=== PATIENT | male | born 1940 | race Caucasian/White ===

== ENCOUNTER 2019-08-20 12:40 | Outpatient (CLI) | payer MEDICARE, SELFPAY ==
--- NOTE | 2019-08-20 12:47 | US_ITS ---
WS: [id number] Bilateral renal ultrasound, 08/20/2019 Clinical Data: CHRONIC KIDNEY DZ-STAGE 3 Comparison: None. Findings: The right kidney measures 11.2 cm x 4.1 cm x 5.6 cm and the left kidney is 12.9 cm x 4.3 cm x 5.6 cm. There are no cysts, masses or hydronephrosis. The renal cortical margin is normal. No renal calculi are seen. The abdominal aorta and inferior vena cava show no vascular abnormalities. The bladder was scanned and was not remarkable. US/US renal BI* [id number] Impression: Negative bilateral renal ultrasound.
== END 2019-08-20 12:41 | disposition home or self-care (01) ==
LOC: RAD 12:45
PROVIDERS: Family Provider Family Medicine; Visit Provider Internal Medicine Nephrology
DX: N18.3 Chronic kidney disease, stage 3 (moderate) (principal)
CPT/HCPCS: 76770

== ENCOUNTER 2020-03-05 13:22 | Observation (INO) | payer OTHER, MEDICARE, SELFPAY ==
[2020-03-05] VITALS (9 sets, daily range): BP systolic 79–130; BP diastolic 40–67; PULSE 68–100; RESP 12–20; TEMP 36.5–36.6; O2SAT 96–99
--- NOTE | 2020-03-05 14:05 | XR_ITS ---
WS: [id number] Portable AP upright chest, 03/05/2020 Clinical Data: Weakness Comparison: PA chest, 05/02/2018. Findings: No nodules, masses or effusions are seen. The heart is normal. The pulmonary vascularity is not increased. No pneumonia or pneumothorax is seen. The permanent pacemaker remains in good positio n. The aortic arch and descending aorta show tortuosity. XR/XR chest 1V portable [id number] Impression: Atherosclerosis.
--- NOTE | 2020-03-05 14:06 | ECG_ITS ---
[facility] Test Date: 2020-03-05 Pat Name: Tulio Arndt Department: Room: Gender: Male [employer] Specialist: : [id number] Requested By: Tamara Gallego Order Number: [id number] Mora MD: Ludivina Street M.D. Measurements Intervals [place] Rate: 80 P: -15 NM: 199 QRS: -22 QRSD: 92 T: 35 QT: 337 QTc: 391 Interpretive Statements SINUS RHYTHM LOW QRS VOLTAGE IN PRECORDIAL LEADS INFERIOR MYOCARDIAL INFARCTION , PROBABLY OLD Compared to ECG 02/28/2015 09:31:29 Low QRS voltage now present Myocardial infarct finding now present Ventricular-paced complex(es) or rhythm no longer present T-wave abnormality no longer present Possible ischemia no longer present Electronically Signed On 03-06-2020 20:27:[address] M.D. [email or web address]
--- NOTE | 2020-03-05 14:11 | CT_ITS ---
WS: [id number] CT scan of the abdomen and pelvis with IV contrast. Additional two-dimensional coronal and sagittal r econstruction was performed. 03/05/2020 Clinical Data: Abdominal pain Comparison: CT abdomen and pelvis, 03/30/2011. DLP: 1896.[address] scans at [facility] use at least one of these dose optimization techniques: automat ed exposure control; mA and/or kV adjustment per patient size (includes targeted exams where dose is matched to clinical indication); or iterative reconstruction. Findings: The lower lungs show no nodules, masses or effusions. Pacemaker wires are in the apex of the heart. The liver, spleen, and pancreas are normal. There is an incidental small cyst of the right lobe of th e liver. There are gallstones in the gallbladder but there is no pericholecystic fluid. The right adr enal gland is normal. 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 The kidneys show equal bilateral contrast excretion with no masses. There are small bilateral cysts. No renal calculi or hydronephrosis is seen. The abdominal aorta is normal in size with minimal calcification in the wall. No appendicitis or diverticulitis is seen. The stomach, small bowel and colon show no abnormalities. There is a large amount of fecal material in the descending and sigmoid colon. The bladder is unremar kable. No inguinal hernia is seen. There is degenerative change of the lumbar vertebral bodies with multiple levels of degenerative disc disease from L2-L3 through L5-S1. There is an anterolisthesis of L5 on S1 of 0.[address]/CT abdomen pelvis w con* [id number] Impression: 1. Negative for acute intra-abdominal or pelvic abnormalities. 2. Cholelithiasis.
--- NOTE | 2020-03-05 14:11 | CT_ITS ---
WS: [id number] CT scan of the head, 03/05/2020 Clinical Data: Injury Comparison: CT head, 06/08/2018. DLP: 786.[address] scans at [facility] use at least one of these dose optimization techniques: automat ed exposure control; mA and/or kV adjustment per patient size (includes targeted exams where dose is matched to clinical indication); or iterative reconstruction. Findings: The ventricular system is enlarged without shift. No recent infarct or hemorrhage is seen. There are no abnormal intracerebral masses. The cerebellum and brainstem are not remarkable. Bony windows of the skull and skull base show no fractures or erosions. The mastoid air cells, international sourcing manager al auditory canals, sella turcica, intraorbital contents, and paranasal sinuses are unremarkable. CT/CT head wo con* [id number] Impression: Moderate cerebral atrophy.
--- NOTE | 2020-03-05 14:11 | CT_ITS ---
WS: [id number] CT cervical spine. Additional two-dimensional coronal and sagittal reconstruction was performed. 03/05 Clinical Data: PAIN Comparison: None. DLP: 1070.[address] scans at [facility] use at least one of these dose optimization techniques: automat ed exposure control; mA and/or kV adjustment per patient size (includes targeted exams where dose is matched to clinical indication); or iterative reconstruction. Findings: No compression fractures are seen. Degenerative disc narrowing is present at C4-C5, C5-C6 and C6-C7.. The spinous processes are in good alignment. Osteoarthritic blurring is present at C4, C5, C6 and C7 . The odontoid is unremarkable. There is no prevertebral soft tissue swelling. The soft tissues of th e cervical spine and the lung apices are not remarkable. C2-C3: No disc bulge, canal stenosis or foraminal stenosis is seen. Moderate facet joint arthritis is present. C3-C4: No disc bulge, canal stenosis or foraminal stenosis is seen. Bilateral facet joint arthritis i s seen. C4-C5: There is a posterior disc osteophyte complex along with bilateral facet joint hypertrophy cau sing canal and foraminal narrowing. C5-C6: There is a posterior disc osteophyte complex with left facet joint hypertrophy causing canal a nd left foraminal stenosis. C6-C7: There is a posterior disc osteophyte complex with left facet joint arthritis causing canal and left foraminal stenosis. C7-T1: No disc bulge, canal stenosis or foraminal stenosis is seen. There is bilateral facet joint hy pertrophy. CT/CT cervical spin wo con* [id number] Impression: 1. Multiple areas of degenerative disc narrowing. 2. Multilevel disc osteophyte impingement on the spinal spinal canal. 3. Multilevel facet joint arthritis causing foraminal stenosis. 4. Degenerative arthritic change of vertebral bodies C4-C7.
[2020-03-05] MEDS: ondansetron 2 mg/ML SDV 2 mL 4 MG IVP (14:30)
[2020-03-05] MEDS: sodium chloride 0.9% 1,000 ML 999 ML IV ×2 (14:31→19:13)
[2020-03-05 14:33] LABS: Basophils # 0.1 10^3/uL (0.0-0.1); Eosinophils # 0.1 10^3/uL (0.0-0.8); Eosinophils % 2.9 %; Hematocrit 38.4 % (42.0-52.0); Hemoglobin 12.1 g/dL (11.7-16.6); Lymphocytes # 0.9 10^3/uL (0.8-4.8); Lymphocytes % 17.8 %; Mean Corpuscular HGB Conc 31.5 g/dL (30.0-36.0); Mean Corpuscular Hemoglobin 31.1 pg (28.0-34.0); Mean Corpuscular Volume 98.7 fL (80-94); Monocytes # 0.3 10^3/uL (0.2-0.9); Monocytes % 5.1 %; Neutrophils # 3.56 10^3/uL (1.8-7.7); Neutrophils % 72.6 %; Nucleated Red Blood Cells % 0 %; Platelet Count 224 10^3/cmm (130-400); Red Blood Count 3.89 10^6/uL (4.1-5.3); Red Cell Distribution Width 15.9 % (12.1-15.1); White Blood Count 4.9 10^3/uL (4.0-10.0)
[2020-03-05 14:43] LABS: ABG PCO2 24.6 mmHg (35-45); ABG PH Result 7.38 (7.35-7.45); Blood Gas Sample Type Arterial; HCO3 ABG 14.5 mmol/L (22-26); PO2 ABG 85.4 mmHg (80.0-100.0)
[2020-03-05 14:44] LABS: Blood Gas Operator Identificat ED; Blood Gas Sample Site Brachial, right
[2020-03-05 14:45] LABS: Ketone (Acetest) Serum Negative (Negative)
[2020-03-05 14:45] LABS: Glucose Point of Care 187 mg/dL (70-110)
[2020-03-05 14:49] LABS: INR 1.38 (0.8-1.2)
[2020-03-05 14:50] LABS: Lactic Sepsis W/Reflex 1.8 mmol/L (0.5-2.2)
[2020-03-05 14:54] LABS: Troponin(5th) Baseline 33 ng/L (0-15)
[2020-03-05 15:04] LABS: Alanine Aminotransferase 13 U/L (0-41); Albumin Level 4.1 g/dL (3.5-5.2); Alkaline Phosphatase 75 IU/L (40-130); Anion Gap 17.7 (5-19); Aspartate Amino Transferase 19 U/L (0-40); Blood Urea Nitrogen 39 mg/dL (8-23); Calcium 9.5 mg/dL (8.5-10.5); Carbon Dioxide 17 mmol/L (22-29); Chloride 102 mmol/L (98-107); Creatine Phosphokinase 159 U/L (39-308); Free T4 Free Thyroxine 1.63 ng/dL (0.82-1.77); Glucose 193 mg/dL (65-115); Lipase 10 U/L (13-60); Magnesium 2.2 mg/dL (1.7-2.3); NT Pro B Type Natriuretic Pept 253 pg/mL (0-450); Osmolality Calculated 275 mOsm/kg (285-295); Potassium 5.7 mmol/L (3.5-5.1); Sodium 131 mmol/L (136-145); Total Bilirubin 0.8 mg/dL (0.15-1.2); Total Protein 7.1 g/dL (6.6-8.7)
[2020-03-05] MEDS: iohexol 300 mg/mL 100 mL Btl IV (15:26)
--- NOTE | 2020-03-05 15:58 | ED_ITS ---
HPI - General Adult General: Chief complaint: General Medical Stated complaint: d/weight loss Time Seen by Provider: 03/05/20 14:03 Source: patient and family Mode of arrival: ambulatory Limitations: no limitations History of Present Illness: HPI narrative: Tulio is a 79-year-old male who comes in complaining of a 2 to 3-week history of nausea, vomiting and diarrhea. He has had intermittent abdominal pain with this. Is also had some falls in the past week secondary to generalized weakness. He did hit his head but did not have loss of consciousness. His family states over this past 2 to 3 weeks he has had a 19 pound weight loss. He states he just does not have an appetite and when he does try to eat or drink he then vomits. He denies any chest pain, shortness of breath. He denies any other focal issues. Associated symptoms: Reports nausea and vomiting; Deny chest pain, confusion, diaphoresis, dyspnea, headache(s), malaise, rash, palpitations or syncope Review of Systems Const: Denies: fever(s), chills, body aches, fatigue, malaise or diaphoresis Eyes: Denies: change in vision, blurry vision, photophobia, eye discomfort, eye discharge or eye redness ENMT: Denies: throat pain, odynophagia, hoarseness, swelling of lips/tongue, ear or mastoid pain, ear discharge, change in hearing or nasal discharge Card: Denies: chest pain, palpitations, irregular heart rhythm, edema, lightheadedness, syncope, pre-syncope, dyspnea on exertion or orthopnea Resp: Denies: dyspnea, productive cough, non-productive cough, wheezing, hemoptysis or chest congestion GI: Reports: abdominal pain, nausea, vomiting and diarrhea; Denies: hematemesis, coffee ground emesis, heartburn, constipation, GI cramping, hematochezia or melena : Denies: flank pain, dysuria, urinary frequency, urinary urgency or hematuria Musc: Denies: neck pain, back pain, extremity pain, extremity swelling, joint pain, joint swelling, joint redness, joint warmth or joint stiffness Skin/Breast: Denies: rash, pruritus, erythema or skin tenderness Neuro: Denies: headache(s), numbness in extremities, weakness in extremities, sensory changes, lack of coordination, difficulty walking, dizziness, vertigo, confusion, Slurred speech present or seizure-like activity Star/Lymph: Denies: easy bruising, easy bleeding, petechiae, purpura or enlarged lymph nodes All/Imm: Denies: urticaria, throat swelling, tongue swelling, facial swelling or acute wheezing PFSH ED PFSH: Medical History (Updated 03/05/20 @ 18:05 by Tamara Morales) BPH (benign prostatic hyperplasia) Dyslipidemia Esophageal stricture Psoriasis Sick sinus syndrome Surgical History (Updated 03/05/20 @ 17:37 by Dre Aguilar MD) History of permanent cardiac pacemaker placement Family History (Updated 03/05/20 @ 17:37 by Dre Aguilar MD) Daughter Pancreatic cancer Social History (Updated 03/05/20 @ 17:38 by Dre Aguilar MD) Smoking and tobacco status: never smoked Alcohol intake: current Alcohol intake frequency: holidays/special occasions only Substance/Drug Use: never Physical Exam Const: COMMON NORMALS: no acute distress, patient oriented x3, no limitations, healthy appearing and well nourished GENERAL APPEARANCE: cooperative, well kempt and well developed HENMT: COMMON NORMALS: normocephalic, atraumatic, external ears normal, EAC's normal and Normal external nose present HEAD & SCALP: normal to inspection, normocephalic and atraumatic FACE & SINUS: normal facial exam and face symmetric NOSE: Normal external nose present and Normal nares present EXTERNAL EAR: Yes external ears normal EXTERNAL AUDITORY CANAL: EAC's normal MOUTH: Normal oral and palatal mucosa present, lip normal and tongue normal Eye: COMMON NORMALS: Equal, round and reactive pupils present and conjunctivae normal GENERAL EYE: appearance normal, both eyes and all related structures ALIGNMENT: Yes alignment normal PERIORBITAL: periorbital findings normal EYELID: eyelids normal CONJUNCTIVA: Yes conjunctivae normal SCLERA: sclerae normal PUPIL: Yes Equal, round and reactive pupils present Neck/C-Spine: COMMON NORMALS: full ROM, no lymphadenopathy, supple, no meningeal signs and no JVD GENERAL: Yes normal visual inspection and Yes trachea midline Chest: COMMONS NORMALS: normal inspection of the chest and normal palpation of entire chest wall Resp: COMMON NORMALS: normal respiratory effort, No retractions, No use of accessory muscles and clear to auscultation bilaterally EFFORT & INSPECTION: Yes able to speak in complete sentences and Yes symmetric chest movement AUSCULTATION: clear to auscultation bilaterally, no crackles, no rales, no rhonchi and no wheezes Cardio: COMMON NORMALS: no JVD, regular rate, regular rhythm, S1 normal heart sound present and S2 normal heart sound present RATE: regular rate RHYTHM: regular rhythm HEART SOUNDS: S1 normal heart sound present, S2 normal heart sound present, no click, no gallops, no murmurs, no rubs and abnormal split S2 GI: COMMON NORMALS: Soft to palpation and No hepatosplenomegaly present PALPATION: Yes Soft to palpation, No Tenderness to palpation present (GI), No Guarding due to palpation present (GI), No Rigid due to palpation, Yes No hepatosplenomegaly present, No Hernia present, No Palpable mass present and No Pulsatile mass present : COMMON NORMALS: Yes no CVA tenderness BLADDER/KIDNEY EXAM: Yes no CVA tenderness Back/Pelvis: COMMON NORMALS: no CVA tenderness, thoracic and lumbar spine normal to inspection, no thoracic nor lumbar tenderness and thoraco-lumbar ROM normal Extremity: COMMON NORMALS: normal to inspection, full ROM, capillary refill normal, no joint enlargement, no clubbing, cyanosis or edema and no calf tenderness Neuro: COMMON NORMALS: patient oriented x3, CN's II-XII intact bilaterally, moves all extremities, no focal motor deficits and no sensory deficits noted MENINGEAL SIGNS: Yes no meningeal signs SPEECH: speech normal Psych: COMMON NORMALS: mental status grossly normal, Normal thought process present, cooperative, normal affect, speech normal and activity/motor behavior normal APPEARANCE: Yes well kempt SPEECH: Yes normal speech THOUGHT PROCESS: Normal thought process present Skin: COMMON NORMALS: no rashes or lesions noted, turgor normal, no jaundice, no petechiae and no mottling GENERAL SKIN EXAM: no rashes or lesions noted and turgor normal Course ED course: 4 -Case reviewed with Dr. Zavala, he will come to see and evaluate the patient in the ER. Vital Signs: Vital signs: Vital Signs Temperature 97.7 F 03/05/20 13:55 Pulse Rate 81 03/05/20 16:50 Respiratory Rate 14 03/05/20 16:50 Blood Pressure 102/40 03/05/20 16:50 Pulse Oximetry 98 03/05/20 16:50 MDM - General Adult MDM Narrative: Medical decision making narrative: Patient has no clear cause on abdominal or head CT for his vomiting. Per his history the patient has a history of esophageal strictures and has had multiple dilatations in the past. I think this is likely the reason he is having vomiting again at this time. The case was reviewed with Dr. Aguilar, he agrees to come see and evaluate the patient in the ER. He will consult GI if necessary. Lab Data: Labs: Lab Results 03/05/20 03/05/20 03/05/20 Range/Units 14:13 14:13 14:13 WBC 4.9 (4.0-10.0) 10^3/ uL RBC 3.89 L (4.1-5.3) 10^6/u L Hgb 12.1 (11.7-16.6) g/dL Hct 38.4 L (42.0-52.0) % MCV 98.7 H (80-94) fL MCH 31.1 (28.0-34.0) pg MCHC 31.5 (30.0-36.0) g/dL RDW 15.9 H (12.1-15.1) % Plt Count 224 (130-400) 10^3/c mm MPV 10.0 (7.4-10.4) fL Neut % (Auto) 72.6 % Lymph % (Auto) 17.8 % Rice % (Auto) 5.1 % Eos % (Auto) 2.9 % Baso % (Auto) 1.0 % Neut # (Auto) 3.56 (1.8-7.7) 10^3/u L Lymph # (Auto) 0.9 (0.8-4.8) 10^3/u L Rice # (Auto) 0.3 (0.2-0.9) 10^3/u L Eos # (Auto) 0.1 (0.0-0.8) 10^3/u L Baso # (Auto) 0.1 (0.0-0.1) 10^3/u L Nucleated RBC % (a uto) 0 % Nucleated RBCs # 0.0 /100WBC PT 17.50 H (12.1-14.9) SECO NDS INR 1.38 H (0.8-1.2) Specimen Type Sample Site ABG pH (7.35-7.45) ABG pCO2 (35-45) mmHg ABG pO2 (80.0-100.0) mmH g ABG HCO3 (22-26) mmol/L ABG Base Excess (-2.0-2.0) mmol/ L Carlos A Test Hematocrit (42-52) % O2 Delivery Device FiO2 % Dental Hygiene Administrative Assistant ID Sodium 131 L (136-145) mmol/L Potassium 5.7 H (3.5-5.1) mmol/L Chloride 102 (98-107) mmol/L Carbon Dioxide 17 L (22-29) mmol/L Anion Gap 17.7 (5-19) BUN 39 H (8-23) mg/dL Creatinine 1.4 H (0.7-1.2) mg/dL GFR Calculation Not Reportable Glucose 193 H (65-115) mg/dL POC Glucose (70-110) mg/dL Calculated Osmolal ity 275 L (285-295) mOsm/k g Lactic Acid (0.5-2.2) mmol/L Calcium 9.5 (8.5-10.5) mg/dL Magnesium 2.2 (1.7-2.3) mg/dL Total Bilirubin 0.8 (0.15-1.2) mg/dL AST 19 (0-40) U/L ALT 13 (0-41) U/L Alkaline Phosphata se 75 (40-130) IU/L Creatine Kinase 159 (39-308) U/L Troponin T Baselin e (0-15) ng/L Troponin T 120 Min chetna (0-15) ng/L Delta Troponin T (0-10) ABS# NT-Pro-B Natriuret Pep 253 (0-450) pg/mL Total Protein 7.1 (6.6-8.7) g/dL Albumin 4.1 (3.5-5.2) g/dL Globulin 3.0 (1.3-4.6) g/dL Lipase 10 L (13-60) U/L Free T4 1.63 (0.82-1.77) ng/d L Urine Color (Yellow) Urine Appearance (CLEAR) Urine pH (5-7) Ur Specific Gravit y (1.005-1.030) Urine Protein (Negative) Urine Glucose (UA) (Normal) Urine Ketones (Negative) Urine Blood (Negative) Urine Nitrate (Negative) Urine Bilirubin (NEGATIVE) Urine Urobilinogen (Negative) mg/dL Ur Leukocyte Jessie ase (Negative) Urine RBC (0-2) /hpf Urine WBC (0-5) /hpf Ur Squamous Epith Cells (0-5) Amorphous Sediment Urine Bacteria (NONE) Urine Mucus Serum Ketones Negative (Negative) 03/05/20 03/05/20 03/05/20 Range/Units 14:13 14:13 14:33 WBC (4.0-10.0) 10^3/ uL RBC (4.1-5.3) 10^6/u L Hgb (11.7-16.6) g/dL Hct (42.0-52.0) % MCV (80-94) fL MCH (28.0-34.0) pg MCHC (30.0-36.0) g/dL RDW (12.1-15.1) % Plt Count (130-400) 10^3/c mm MPV (7.4-10.4) fL Neut % (Auto) % Lymph % (Auto) % Rice % (Auto) % Eos % (Auto) % Baso % (Auto) % Neut # (Auto) (1.8-7.7) 10^3/u L Lymph # (Auto) (0.8-4.8) 10^3/u L Rice # (Auto) (0.2-0.9) 10^3/u L Eos # (Auto) (0.0-0.8) 10^3/u L Baso # (Auto) (0.0-0.1) 10^3/u L Nucleated RBC % (a uto) % Nucleated RBCs # /100WBC PT (12.1-14.9) SECO NDS INR (0.8-1.2) Specimen Type Arterial Sample Site Brachial, right ABG pH 7.38 (7.35-7.45) ABG pCO2 24.6 L (35-45) mmHg ABG pO2 85.4 (80.0-100.0) mmH g ABG HCO3 14.5 L (22-26) mmol/L ABG Base Excess -9.0 L (-2.0-2.0) mmol/ L Carlos A Test N/a Hematocrit 36.0 L (42-52) % O2 Delivery Device None FiO2 21.0 % Dental Hygiene Administrative Assistant ID Ed Sodium (136-145) mmol/L Potassium (3.5-5.1) mmol/L Chloride (98-107) mmol/L Carbon Dioxide (22-29) mmol/L Anion Gap (5-19) BUN (8-23) mg/dL Creatinine (0.7-1.2) mg/dL GFR Calculation Glucose (65-115) mg/dL POC Glucose (70-110) mg/dL Calculated Osmolal ity (285-295) mOsm/k g Lactic Acid 1.8 (0.5-2.2) mmol/L Calcium (8.5-10.5) mg/dL Magnesium (1.7-2.3) mg/dL Total Bilirubin (0.15-1.2) mg/dL AST (0-40) U/L ALT (0-41) U/L Alkaline Phosphata se (40-130) IU/L Creatine Kinase (39-308) U/L Troponin T Baselin e 33 H (0-15) ng/L Troponin T 120 Min chetna (0-15) ng/L Delta Troponin T (0-10) ABS# NT-Pro-B Natriuret Pep (0-450) pg/mL Total Protein (6.6-8.7) g/dL Albumin (3.5-5.2) g/dL Globulin (1.3-4.6) g/dL Lipase (13-60) U/L Free T4 (0.82-1.77) ng/d L Urine Color (Yellow) Urine Appearance (CLEAR) Urine pH (5-7) Ur Specific Gravit y (1.005-1.030) Urine Protein (Negative) Urine Glucose (UA) (Normal) Urine Ketones (Negative) Urine Blood (Negative) Urine Nitrate (Negative) Urine Bilirubin (NEGATIVE) Urine Urobilinogen (Negative) mg/dL Ur Leukocyte Jessie ase (Negative) Urine RBC (0-2) /hpf Urine WBC (0-5) /hpf Ur Squamous Epith Cells (0-5) Amorphous Sediment Urine Bacteria (NONE) Urine Mucus Serum Ketones (Negative) 03/05/20 03/05/20 03/05/20 Range/Units 14:41 16:20 16:22 WBC (4.0-10.0) 10^3/ uL RBC (4.1-5.3) 10^6/u L Hgb (11.7-16.6) g/dL Hct (42.0-52.0) % MCV (80-94) fL MCH (28.0-34.0) pg MCHC (30.0-36.0) g/dL RDW (12.1-15.1) % Plt Count (130-400) 10^3/c mm MPV (7.4-10.4) fL Neut % (Auto) % Lymph % (Auto) % Rice % (Auto) % Eos % (Auto) % Baso % (Auto) % Neut # (Auto) (1.8-7.7) 10^3/u L Lymph # (Auto) (0.8-4.8) 10^3/u L Rice # (Auto) (0.2-0.9) 10^3/u L Eos # (Auto) (0.0-0.8) 10^3/u L Baso # (Auto) (0.0-0.1) 10^3/u L Nucleated RBC % (a uto) % Nucleated RBCs # /100WBC PT (12.1-14.9) SECO NDS INR (0.8-1.2) Specimen Type Sample Site ABG pH (7.35-7.45) ABG pCO2 (35-45) mmHg ABG pO2 (80.0-100.0) mmH g ABG HCO3 (22-26) mmol/L ABG Base Excess (-2.0-2.0) mmol/ L Carlos A Test Hematocrit (42-52) % O2 Delivery Device FiO2 % Dental Hygiene Administrative Assistant ID Sodium (136-145) mmol/L Potassium (3.5-5.1) mmol/L Chloride (98-107) mmol/L Carbon Dioxide (22-29) mmol/L Anion Gap (5-19) BUN (8-23) mg/dL Creatinine (0.7-1.2) mg/dL GFR Calculation Glucose (65-115) mg/dL POC Glucose 187 (70-110) mg/dL Calculated Osmolal ity (285-295) mOsm/k g Lactic Acid (0.5-2.2) mmol/L Calcium (8.5-10.5) mg/dL Magnesium (1.7-2.3) mg/dL Total Bilirubin (0.15-1.2) mg/dL AST (0-40) U/L ALT (0-41) U/L Alkaline Phosphata se (40-130) IU/L Creatine Kinase (39-308) U/L Troponin T Baselin e (0-15) ng/L Troponin T 120 Min chetna 28.86 H (0-15) ng/L Delta Troponin T -4.14 L (0-10) ABS# NT-Pro-B Natriuret Pep (0-450) pg/mL Total Protein (6.6-8.7) g/dL Albumin (3.5-5.2) g/dL Globulin (1.3-4.6) g/dL Lipase (13-60) U/L Free T4 (0.82-1.77) ng/d L Urine Color Yellow (Yellow) Urine Appearance Clear (CLEAR) Urine pH 5.0 (5-7) Ur Specific Gravit y 1.015 (1.005-1.030) Urine Protein Neg (Negative) Urine Glucose (UA) Norm (Normal) Urine Ketones 1+ H (Negative) Urine Blood Neg (Negative) Urine Nitrate Negative (Negative) Urine Bilirubin Neg (NEGATIVE) Urine Urobilinogen Norm (Negative) mg/dL Ur Leukocyte Jessie ase Negative (Negative) Urine RBC None (0-2) /hpf Urine WBC Rare (0-5) /hpf Ur Squamous Epith Cells 0-4 H (0-5) Amorphous Sediment Not Reportable Urine Bacteria Trace (NONE) Urine Mucus Trace Serum Ketones (Negative) Imaging Data^: CXR: Attestation: I personally reviewed and interpreted this imaging study as follows: My impression: No acute cardiopulmonary findings. CT Head: Attestation: I personally reviewed and interpreted this imaging study as follows: Radiologist's impression: [address] [address] [address] Scan Report Signed Patient: Tulio Arndt Unit #: [id number] : 1940 Age/Sex: 79 / M ADM Date: 03/05/20 Loc: ER Room/Bed: Attending Dr: Ordering Provider/Ordering MD: Tamara Morales DO Date of Service: 03/05/20 Procedure(s): CT head wo con* [id number] Accession Number(s): [id number] Report Number: [id number] WS: [id number] CT scan of the head, 03/05/2020 Clinical Data: Injury Comparison: CT head, 06/08/2018. DLP: 786.[address] scans at [facility] use at least one of these dose optimization techniques: automated exposure control; mA and/or kV adjustment per patient size (includes targeted exams where dose is matched to clinical indication); or iterative reconstruction. Findings: The ventricular system is enlarged without shift. No recent infarct or hemorrhage is seen. There are no abnormal intracerebral masses. The cerebellum and brainstem are not remarkable. Bony windows of the skull and skull base show no fractures or erosions. The mastoid air cells, internal auditory canals, sella turcica, intraorbital contents, and paranasal sinuses are unr emarkable. CT/CT head wo con* [id number] Impression: Moderate cerebral atrophy. Dictated By: Kianna Petersen MD Signed By: Kianna Petersen MD Signed Date/Time: 03/05/20 1521 DD/ 1518 CT Cervical Spine: Radiologist's impression: [address] [address] [address] Scan Report Signed Patient: Tulio Arndt Unit #: [id number] : 1940 Age/Sex: 79 / M ADM Date: 03/05/20 Loc: ER Room/Bed: Attending Dr: Ordering Provider/Ordering MD: Tamara Morales DO Date of Service: 03/05/20 Procedure(s): CT cervical spin wo con* [id number] Accession Number(s): [id number] Report Number: [id number] WS: [id number] CT cervical spine. Additional two-dimensional coronal and sagittal reconstruction was performed. 03/05/2020 Clinical Data: PAIN Comparison: None. DLP: 1070.[address] scans at [facility] use at least one of these dose optimization techniques: automated exposure control; mA and/or kV adjustment per patient size (includes targeted exams where dose is matched to clinical indication); or iterative reconstruction. Findings: No compression fractures are seen. Degenerative disc narrowing is present at C4-C5, C5-C6 and C6- C7.. The spinous processes are in good alignment. Osteoarthritic blurring is present at C4, C5, C6 and C7. The odontoid is unremarkable. There is no prevertebral soft tissue swelling. The soft tissues of the cervical spine and the lung apices are not remarkable. C2-C3: No disc bulge, canal stenosis or foraminal stenosis is seen. Moderate facet joint arthritis is present. C3-C4: No disc bulge, canal stenosis or foraminal stenosis is seen. Bilateral facet joint arthritis is seen. C4-C5: There is a posterior disc osteophyte complex along with bilateral facet joint hypertrophy causing canal and foraminal narrowing. C5-C6: There is a posterior disc osteophyte complex with left facet joint hypertrophy causing canal and left foraminal stenosis. C6-C7: There is a posterior disc osteophyte complex with left facet joint arthritis causing canal and left foraminal stenosis. C7-T1: No disc bulge, canal stenosis or foraminal stenosis is seen. There is bilateral facet joint hypertrophy. CT/CT cervical spin wo con* [id number] Impression: 1. Multiple areas of degenerative disc narrowing. 2. Multilevel disc osteophyte impingement on the spinal spinal canal. 3. Multilevel facet joint arthritis causing foraminal stenosis. 4. Degenerative arthritic change of vertebral bodies C4-C7. Dictated By: Kianna Petersen MD Signed By: Kianna Petersen MD Signed Date/Time: 03/05/20 1531 DD/ 1522 CT Abd/Pel: Radiologist's impression: [address] [address] [address] Scan Report Signed Patient: Tulio Arndt Unit #: [id number] : 1940 Age/Sex: 79 / M ADM Date: 03/05/20 Loc: ER Room/Bed: Attending Dr: Ordering Provider/Ordering MD: Tamara Morales DO Date of Service: 03/05/20 Procedure(s): CT abdomen pelvis w con* [id number] Accession Number(s): [id number] Report Number: [id number] WS: [id number] CT scan of the abdomen and pelvis with IV contrast. Additional two-dimensional coronal and sagittal reconstruction was performed. 03/05/2020 Clinical Data: Abdominal pain Comparison: CT abdomen and pelvis, 03/30/2011. DLP: 1896.[address] scans at [facility] use at least one of these dose optimization techniques: automated exposure control; mA and/or kV adjustment per patient size (includes targeted exams where dose is matched to clinical indication); or iterative reconstruction. Findings: The lower lungs show no nodules, masses or effusions. Pacemaker wires are in the apex of the heart. The liver, spleen, and pancreas are normal. There is an incidental small cyst of the right lobe of the liver. There are gallstones in the gallbladder but there is no pericholecystic fluid. The right adrenal gland is normal. 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 The kidneys show equal bilateral contrast excretion with no masses. There are small bilateral cysts. No renal calculi or hydronephrosis is seen. The abdominal aorta is normal in size with minimal calcification in the wall. No appendicitis or diverticulitis is seen. The stomach, small bowel and colon show no abnormalities. There is a large amount of fecal material in the descending and sigmoid colon. The bladder is unremarkable. No inguinal hernia is seen. There is degenerative change of the lumbar vertebral bodies with multiple levels of degenerative disc disease from L2-L3 through L5-S1. There is an anterolisthesis of L5 on S1 of 0.[address]/CT abdomen pelvis w con* [id number] Impression: 1. Negative for acute intra-abdominal or pelvic abnormalities. 2. Cholelithiasis. Dictated By: Kianna Petersen MD Signed By: Kianna Petersen MD Signed Date/Time: 03/05/20 1551 DD/ 1536 US: My impression: Ultrasound gallbladder, tech interpretation -no acute abnormal findings. Please see formal report. EKG Data^: EKG 1: Attestation: I personally reviewed and interpreted this EKG as follows: EKG interpretation date: 03/05/20 EKG interpretation time: 14:15 Interpretation: Normal sinus rhythm at 80 beats a minute, left axis deviation, left anterior fascicular block, Q waves inferiorly, otherwise no acute ST or T wave changes. Computer generated interpretation: Chest X-Ray 03/05/20 14:05 Impression: Atherosclerosis. Abdomen/Pelvis CT 03/05/20 14:11 Impression: 1. Negative for acute intra-abdominal or pelvic abnormalities. 2. Cholelithiasis. Cervical Spine CT 03/05/20 14:11 Impression: 1. Multiple areas of degenerative disc narrowing. 2. Multilevel disc osteophyte impingement on the spinal spinal canal. 3. Multilevel facet joint arthritis causing foraminal stenosis. 4. Degenerative arthritic change of vertebral bodies C4-C7. Head CT 03/05/20 14:11 Impression: Moderate cerebral atrophy. Gallbladder Ultrasound 03/05/20 15:58 Impression: Right upper quadrant and gallbladder ultrasound. EKG 2: Attestation: I personally reviewed and interpreted this EKG as follows: EKG interpretation date: 03/05/20 EKG interpretation time: 16:34 Interpretation: Atrial paced rhythm at 68 beats a minute, no acute ST or T wave changes. Computer generated interpretation: Chest X-Ray 03/05/20 14:05 Impression: Atherosclerosis. Abdomen/Pelvis CT 03/05/20 14:11 Impression: 1. Negative for acute intra-abdominal or pelvic abnormalities. 2. Cholelithiasis. Cervical Spine CT 03/05/20 14:11 Impression: 1. Multiple areas of degenerative disc narrowing. 2. Multilevel disc osteophyte impingement on the spinal spinal canal. 3. Multilevel facet joint arthritis causing foraminal stenosis. 4. Degenerative arthritic change of vertebral bodies C4-C7. Head CT 03/05/20 14:11 Impression: Moderate cerebral atrophy. Gallbladder Ultrasound 03/05/20 15:58 Impression: Right upper quadrant and gallbladder ultrasound. Discharge Plan Discharge Patient Disposition: Placed in Observation Clinical Impression: Acute dehydration Intractable vomiting Qualifiers: Vomiting type: unspecified Nausea presence: with nausea Qualified Code(s): R11.2 - Nausea with vomiting, unspecified Coding Level of Care Code ED [employer] Judge for Chg Fwd Exam Comprehensive
--- NOTE | 2020-03-05 15:58 | US_ITS ---
WS: [id number] Gallbladder ultrasound, 03/05/2020 Clinical Data: Pain Comparison: CT abdomen and pelvis, 03/05/2020 Findings: The gallbladder shows no sludge or stone. The wall measures 0.3 cm with no pericholecystic fluid. The common bile duct is 0.6 cm and there are no intrahepatic ductal abnormalities. Liver shows no cysts, masses or dilated intrahepatic ducts. The pancreas is not obscured by overlying bowel gas and no cyst, pseudocyst, or evidence of pancreati tis is noted. Right kidney measures 11.2 cm and no cyst, masses or hydronephrosis can be seen. The aorta and inferior vena cava show no vascular abnormalities. US/US gall bladder 15100 Impression: Right upper quadrant and gallbladder ultrasound.
--- NOTE | 2020-03-05 16:06 | ECG_ITS ---
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 Measurements Intervals Success Rate: 68 P: 58 MA: 228 QRS: -6 QRSD: 86 T: 30 QT: 372 QTc: 397 Interpretive Statements ELECTRONIC ATRIAL PACEMAKER LOW QRS VOLTAGE IN PRECORDIAL LEADS [QRS DEFLECTION < 1.0 mV IN CHEST LEADS] INFERIOR MYOCARDIAL INFARCTION , PROBABLY OLD [40+ ms Q WAVE AND/OR ST/T ABNORMALITY IN II/aVF] Compared to ECG 03/05/2020 14:15:56 Sinus rhythm no longer present Myocardial infarct finding still present Electronically Signed On 03-06-2020 20:55:[address] M.D. [id number]
[2020-03-05 16:50] LABS: Urine Appearance Clear (CLEAR); Urine Color Yellow (Yellow)
[2020-03-05 16:51] LABS: Add Urine Culture? No; Bacteria Urine TRACE; Bilirubin Urine Neg (NEGATIVE); Blood Urine Neg (Negative); Glucose Urine UA Norm (Normal); Ketones Urine 1+ (Negative); Leukocyte Esterase Urine Negative (Negative); Mucus Urine TRACE; Nitrate Urine Negative (Negative); Protein Urine Neg (Negative); Specific Gravity, Urine 1.015 (1.005-1.030); Squamous Epithelial Cell Urine 0-4 (0-5); Urobilinogen Urine Norm (Negative); WBC Urine RARE /hpf (0-5)
[2020-03-05 17:02] LABS: Troponin 5 2HR 28.86 ng/L (0-15)
[2020-03-05 17:04] LABS: Troponin 5 2HR Delta -4.14 ABS# (0-10)
--- NOTE | 2020-03-05 17:30 | P.HP_ITS ---
Providers/Chief Complaint Primary Care Provider: Sharon Gleason NP Chief Complaint: d/weight loss History of Present Illness Tulio Arndt is a 79 year old male with a past medical history of dementia, insulin-dependent type 2 diabetes mellitus, psoriasis on methotrexate, atrial fibrillation on Eliquis, history of pulmonary embolism on Eliquis, hypertension, hyperlipidemia, history of CAD, history of BPH, history of esophageal strictures status post dilatation, history of sick sinus syndrome status post pacemaker placement, gout who presents to [facility] due to 2 weeks history of nausea, vomiting, poor appetite, difficulty swallowing, weight loss. Patient presents with who is at bedside, patient does not have his hearing aids, so some of the history was obtained from his . According to patient and his wi fe, roughly 2 weeks ago he started to develop nausea, vomiting, poor appetite. Patient states that initially it started off with just a poor appetite, just would not like to eat anything. Normally patient states that he loves food, he always is planning his next meal. There is a poor appetite involved into him not being able to keep anything down. Patient says that whenever he would take a bite of something solid, he would just end up spitting it back up. It does not seem like it was a food intolerance, as he was finding it difficult to keep down solid foods of different consistencies and types. He was able to keep down liquids, such as water and milk. Was able to keep down his medications. But never he would try to chew something and swallow it, he would say that he would end up throwing it back up. No globus sensation, no pain with swallowing, no hematemesis, denies ever choking on a piece of food, denies vomiting of diet undigested food. Patient also developed generalized abdominal pain with his above symptoms. But they are fairly nonspecific. Patient also complains of acid reflux, but has stopped taking his acid reflux medication as it was pulled by the FDA due to cancer risk. Patient tells me that 5 years ago, he had similar symptoms, but different in other ways, had an esophageal stricture that was dilated by Dr. Reynolds. Had a EGD [address] Issa which was in normal limits. Denies fevers, chills, did travel to [place] in December, does complain of dysgeusia, is compliant with facemask rules, handwashing. Patient's states that he is lost roughly 16 pounds in the last 2 weeks. No bloody stools. No black stools. No hematuria. No hematemesis. No history of smoking. Occasional alcohol use. Review of Systems Const: Denies: fever(s), chills, fatigue or malaise Eyes: Denies: change in vision or blurry vision ENMT: Denies: nasal congestion Resp: Denies: dyspnea, productive cough, non-productive cough or wheezing GI: Denies: abdominal pain, nausea, vomiting, hematemesis, diarrhea, constipation, hematochezia or melena : Denies: flank pain, difficulty urinating, dysuria or urinary frequency Musc: Denies: neck pain or back pain Skin/Breast: Denies: rash Neuro: Denies: headache(s), dizziness or vertigo Psych: Denies: anxiety or depression Endo: Denies: polyuria or polydipsia Medications/Allergies Home Medications Medication Instructions Recorded Confirmed Last Taken Type allopurinol 100 mg PO DAILY 03/05/20 03/05/20 03/04/20 History apixaban 5 mg PO BID 03/05/20 03/05/20 03/04/20 History aspirin [Aspirin Low Dose] 81 mg PO DAILY 03/05/20 03/05/20 03/04/20 History benazepril 40 mg PO DAILY 03/05/20 03/05/20 03/04/20 History cholecalciferol (vitamin D3) 25 mcg PO DAILY 03/05/20 03/05/20 03/04/20 History finasteride 5 mg PO DAILY 03/05/20 03/05/20 03/04/20 History folic acid 1 mg PO DAILY 03/05/20 03/05/20 03/04/20 History glipizide 10 mg PO BID 03/05/20 03/05/20 03/04/20 History insulin aspart U-100 5 unit SUBCUT TID 03/05/20 03/05/20 03/03/20 History insulin glargine 70 units PO DAILY 03/05/20 03/05/20 03/03/20 History isosorbide mononitrate 60 mg PO DAILY 03/05/20 03/05/20 03/04/20 History metformin 850 mg PO TID 03/05/20 03/05/20 03/04/20 History methotrexate sodium 25 mg IM Q7D 03/05/20 03/05/20 Unknown History metoprolol tartrate 100 mg PO DAILY 03/05/20 03/05/20 03/04/20 History nitroglycerin 0.4 mg SUBLINGUAL Q5M PRN 03/05/20 03/05/20 Unknown History omeprazole 20 mg PO DAILY 03/05/20 03/05/20 Unknown History pioglitazone 15 mg PO DAILY 03/05/20 03/05/20 03/04/20 History pravastatin 80 mg PO DAILY 03/05/20 03/05/20 03/04/20 History spironolactone 12.5 mg PO DAILY 03/05/20 03/05/20 Unknown History tamsulosin 0.4 mg PO DAILY 03/05/20 03/05/20 03/04/20 History Allergies Allergy/AdvReac Type Severity Reaction Status Date / Time Penicillins Allergy Unknown Verified 03/05/20 15:33 PFSH Acute PFSH: Medical History (Updated 03/05/20 @ 17:37 by Dre Aguilar MD) BPH (benign prostatic hyperplasia) Dyslipidemia Esophageal stricture Psoriasis Sick sinus syndrome Surgical History (Updated 03/05/20 @ 17:37 by Dre Aguilar MD) History of permanent cardiac pacemaker placement Family History (Updated 03/05/20 @ 17:37 by Dre Agiular MD) Daughter Pancreatic cancer Social History (Updated 03/05/20 @ 17:38 by Dre Aguilar MD) Smoking and tobacco status: never smoked Alcohol intake: current Alcohol intake frequency: holidays/special occasions only Substance/Drug Use: never Vitals/I&O/Wt Last Vital Signs Temp 97.7 F 03/05/20 13:55 Pulse 81 03/05/20 16:50 Resp 14 03/05/20 16:50 BP 102/40 03/05/20 16:50 Pulse Ox 98 03/05/20 16:50 Physical Exam Const: COMMON NORMALS: no acute distress and patient oriented x3 GENERAL APPEARANCE: cooperative and comfortable HENMT: COMMON NORMALS: normocephalic HEAD & SCALP: normocephalic Eye: COMMON NORMALS: Equal, round and reactive pupils present and EOMs intact bilaterally GENERAL EYE: appearance normal, both eyes and all related structures PUPIL: Yes Equal, round and reactive pupils present Neck/C-Spine: COMMON NORMALS: full ROM, no lymphadenopathy, no JVD and Thyroid normal THYROID: Thyroid normal Lymph: LYMPHATIC: no lymphadenopathy noted Resp: COMMON NORMALS: normal respiratory effort, No retractions, No use of accessory muscles and clear to auscultation bilaterally AUSCULTATION: clear to auscultation bilaterally Cardio: COMMON NORMALS: no JVD, regular rate, regular rhythm, S1 normal heart sound present, S2 normal heart sound present, No gallops present (Cardio), No clicks present (Cardio) and No murmurs present (Cardio) RATE: regular rate RHYTHM: regular rhythm HEART SOUNDS: S1 normal heart sound present and S2 normal heart sound present GI: COMMON NORMALS: Normal to inspection, nondistended, normoactive bowel sounds present, Soft to palpation, non-tender and No hepatosplenomegaly present PALPATION: Yes Soft to palpation and Yes No hepatosplenomegaly present Extremity: COMMON NORMALS: normal to inspection, full ROM and no pedal edema Neuro: COMMON NORMALS: patient oriented x3, CN's II-XII intact bilaterally, moves all extremities and no focal motor deficits Psych: COMMON NORMALS: mental status grossly normal, Normal thought process present and cooperative THOUGHT PROCESS: Normal thought process present Data : 03/05/20 14:13 03/05/20 14:13 Micro: Microbiology 03/05/20 14:13 Blood Culture - Preliminary Blood SPECIMEN COLLECTED 03/05/20 14:19 Blood Culture - Preliminary Blood SPECIMEN COLLECTED A&P Assessment and plan (1) Dysphasia: -Dysphagia to solids, not liquid -No smoking history, occasional alcohol use, is on methotrexate, 16 pound weight loss -Has a history of esophageal stricture status post dilatation -Has a history of esophageal spasms Plan: -Try a diabetic diet this evening, will have nurses monitor her feet, aspiration precautions -Keep patient n.p.o. midnight, in case he needs an EGD tomorrow morning -Start gentle IV hydration, D5 half-normal saline given evidence of dehydration and ESTEFANÍA -I have spoken to Dr. Reynolds, if patient continues to have symptoms tomorrow morning, we will proceed to EGD -We will start him on a calcium channel cheryl for possible esophageal spasms Status: Acute (2) Dehydration: Status: Acute (3) Acute kidney injury: -Creatinine 1.4, start IV hydration Status: Acute (4) Sick sinus syndrome: Status: Acute (5) Esophageal stricture: Status: Acute (6) Dyslipidemia: Status: Acute (7) Psoriasis: Status: Acute (8) BPH (benign prostatic hyperplasia): Status: Acute (9) CAD (coronary artery disease): Status: Acute (10) Falls: -2 falls in the last 2 weeks, CT of the neck negative for fracture -We will have PT OT see patient Status: Acute (11) Hypertension: Status: Acute (12) Insulin dependent type 2 diabetes mellitus: Status: Acute (13) GERD (gastroesophageal reflux disease): Status: Acute Additional A&P Information Full code Eliquis for DVT prophylaxis Will do COVID-19 testing due to complaints of dysgeusia Attestations Medical Necessity Statement*: Patient requires hospitalization, outpatient with observation, for dysphasia Coding Level of Care Code Acute Protocol Officer for Chg Fwd Diagnoses Dysphasia R47.02 Dehydration E86.0 Acute kidney injury N17.9 Sick sinus syndrome I49.5 Esophageal stricture K22.2 Dyslipidemia E78.5 Psoriasis L40.9 BPH (benign prostatic hyperplasia) N40.0 CAD (coronary artery disease) I25.10 Falls W19.XXXA Hypertension I10 Insulin dependent type 2 diabetes mellitus E11.9; Z79.4 GERD (gastroesophageal reflux disease) K21.9
--- NOTE | 2020-03-05 19:17 | PC.NURSE ---
patient report received from TOMÁS Rodriguez and care trasnferred to TOMÁS Parham
[2020-03-05 19:32] LABS: SARS Covid-2 Antigen Negative (Negative)
--- NOTE | 2020-03-05 20:06 | ECG_ITS ---
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 Measurements Intervals [place] Rate: 81 P: 60 ME: 227 QRS: 6 QRSD: 82 T: 79 QT: 334 QTc: 388 Interpretive Statements SINUS RHYTHM WITH FIRST DEGREE AV BLOCK WITH OCCASIONAL SUPRAVENTRICULAR PREMATURE COMPLEXES LOW QRS VOLTAGE IN PRECORDIAL LEADS [QRS DEFLECTION < 1.0 mV IN CHEST LEADS] NONSPECIFIC T-WAVE ABNORMALITY Compared to ECG 03/05/2020 16:34:47 First degree AV block now present T-wave abnormality now present Atrial-paced complex(es) or rhythm no longer present Myocardial infarct finding no longer present Electronically Signed On 03-06-2020 20:53:[address] M.D. [id number]
[2020-03-05 21:09] LABS: Troponin 5 6HR 26.56 ng/L (0-15)
[2020-03-05 21:11] LABS: Troponin 5 6HR Delta -6.44 ng/L (0-12)
[2020-03-05] MEDS: dextrose 5%-sod chloride 0.45% 1,000 ML 100 ML IV (21:31)
[2020-03-05 21:37] LABS: Estmated Average Glucose 160; Hemoglobin A1C 7.2 % (4.0-6.0)
[2020-03-05 21:39] LABS: Chol HDL Ratio 2.71 mg/dL (1.0-5.00); Cholesterol 92 mg/dL (0-200); HDL Cholesterol 34 mg/dL (60-100); LDL Cholesterol Calculated 21 mg/dL (50-129); LDL HDL Ratio 0.62 RATIO (0.00-3.22); Triglycerides 186 mg/dL (0-150)
[2020-03-05 22:00] LABS: Glucose Point of Care 156 mg/dL (70-110)
[2020-03-05] MEDS: insulin glargine 100 units/1 mL 35 UNIT SUBCUT (22:54)
[2020-03-06] VITALS (11 sets, daily range): BP systolic 102–148; BP diastolic 55–79; PULSE 63–79; RESP 16–22; TEMP 36.2–36.8; O2SAT 96–99
[2020-03-06 04:59] LABS: INR 1.39 (0.8-1.2)
--- NOTE | 2020-03-06 06:03 | PC.NURSE ---
Shift Summary Pt slept well throughout the night other than waking up to use the urinal. No c/o of pain, N/V, or diarrhea tonight.
[2020-03-06 06:56] LABS: Glucose Point of Care 167 mg/dL (70-110)
[2020-03-06] MEDS: dextrose 5%-sod chloride 0.45% 1,000 ML 100 ML IV (07:35)
--- NOTE | 2020-03-06 10:31 | PC.NURSE ---
Pt is NPO for possible EGD this afternoon, morning medications on hold per Dr. Aguilar.
[2020-03-06 10:43] LABS: Glucose Point of Care 176 mg/dL (70-110)
--- NOTE | 2020-03-06 11:16 | ANES.PREANE2 ---
Pre-Anesthetic Assessment Pre-Anesthetic Assessment: Height/Weight: Height 1.78 m Weight 107.955 kg Temp Pulse Resp BP Pulse Ox 97.5 F L 77 18 114/71 98 03/06/20 11:10 03/06/20 11:10 03/06/20 11:10 03/06/20 11:10 03/06/20 11:10 Proposed Procedure: Operation Date: 03/06/20 11:00 Proposed Procedures p EGD(Not Applicable) - Michael Reynolds MD Was Beta Latrell taken within 24 hours: N/A Last intake: Intake Last Liquid Date 03/05/20 Last Liquid Time 23:00 Last Solid Date 02/19/20 Last Solid Time 18:00 Social: Social History: No alcohol and No tobacco Exam: Pre-Anes Outpt Exam: alert, oriented x 3, clear to auscultation bilaterally and regular rate & rhythm Airway: Submandibular: WNL Cervical ROM: WNL MP: 2 Pulmonary: Pulmonary: None reported CV/HEM: CV/HEM: CAD and HTN : : None reported Hepatic: Hepatic: None reported GI: GI: None reported Metabolic: Metabolic: DM and Hyperlipidemia Musc/skel: Musc/skel: None reported Neuropsych: Neuropsych: None reported Anesthetic Plan: ASA status: 3 Anesthesia: MAC Meds/Allergies Current Medications: Current Medications Generic Name Dose Route Start Last Admin Trade Name Jonn PRN Reason Stop Dose Admin Allopurinol 100 mg 03/06/20 09:00 03/06/20 10:30 Zyloprim PO Not Given DAILY INGRID Aspirin 81 mg 03/06/20 09:00 03/06/20 10:30 Aspirin Ec PO Not Given DAILY INGRID Atorvastatin Calci um 20 mg 03/06/20 09:00 03/06/20 10:30 Lipitor PO Not Given DAILY INGRID Finasteride 5 mg 03/06/20 09:00 03/06/20 10:30 Proscar PO Not Given DAILY INGRID Folic Acid 1 mg 03/06/20 09:00 03/06/20 10:30 Folic Acid PO Not Given DAILY INGRID Dextrose/Sodium Ch loride 1,000 mls @ 100 m ls/hr 03/05/20 21:08 03/06/20 07:35 Dextrose 5%-Sod Chloride 0.45% IV 100 mls/hr .Q10H INGRID Administration Insulin Aspart 0 unit 03/05/20 21:08 03/06/20 09:47 Novolog SUBCUT Not Given TIDWM [facility] Protocol Insulin Glargine 35 unit 03/05/20 23:00 03/05/20 22:54 Lantus SUBCUT 35 unit QPM INGRID Administration Isosorbide Mononit rate 60 mg 03/06/20 09:00 03/06/20 10:29 Imdur PO Not Given DAILY INGRID Lisinopril 40 mg 03/06/20 09:00 03/06/20 10:29 Prinivil PO Not Given DAILY INGRID Metoprolol Tartrat e 100 mg 03/06/20 09:00 03/06/20 10:26 Lopressor PO Not Given DAILY INGRID Pantoprazole Sodiu m 40 mg 03/06/20 09:00 03/06/20 10:26 Protonix PO Not Given DAILY INGRID Spironolactone 12.5 mg 03/06/20 09:00 03/06/20 10:25 Aldactone PO Not Given DAILY INGRID Tamsulosin HCl 0.4 mg 03/06/20 09:00 03/06/20 10:25 Flomax PO Not Given DAILY INGRID Vitamin D 1,000 unit 03/06/20 09:00 03/06/20 10:30 Vitamin D3 PO Not Given DAILY INGRID PFSH Anesthesia PFSH: Medical History (Updated 03/05/20 @ 18:05 by Tamara Morales) BPH (benign prostatic hyperplasia) Dyslipidemia Esophageal stricture Psoriasis Sick sinus syndrome Surgical History (Updated 03/05/20 @ 17:37 by Dre Aguilar MD) History of permanent cardiac pacemaker placement Family History (Updated 03/05/20 @ 17:37 by Dre Aguilar MD) Daughter Pancreatic cancer Social History (Updated 03/05/20 @ 17:38 by Dre Aguilar MD) Smoking and tobacco status: never smoked Alcohol intake: current Alcohol intake frequency: holidays/special occasions only Substance/Drug Use: never Data Anesthesia CBC & Chem 7: 03/05/20 14:13 03/05/20 14:13 Other Labs: Laboratory Results - last 48 hr 03/05/20 03/05/20 03/05/20 14:13 14:13 14:13 WBC 4.9 RBC 3.89 L Hgb 12.1 Hct 38.4 L MCV 98.7 H MCH 31.1 MCHC 31.5 RDW 15.9 H Plt Count 224 MPV 10.0 Neut % (Auto) 72.6 Lymph % (Auto) 17.8 Logan % (Auto) 5.1 Eos % (Auto) 2.9 Baso % (Auto) 1.0 Neut # (Auto) 3.56 Lymph # (Auto) 0.9 Logan # (Auto) 0.3 Eos # (Auto) 0.1 Baso # (Auto) 0.1 Nucleated RBC % (auto) 0 Nucleated RBCs # 0.0 PT 17.50 H INR 1.38 H Specimen Type Sample Site ABG pH ABG pCO2 ABG pO2 ABG HCO3 ABG Base Excess Carlos A Test Hematocrit O2 Delivery Device FiO2 Software Performance Engineer ID Sodium 131 L Potassium 5.7 H Chloride 102 Carbon Dioxide 17 L Anion Gap 17.7 BUN 39 H Creatinine 1.4 H GFR Calculation Not Reportable Glucose 193 H POC Glucose Estimat Average Glucose Hemoglobin A1c Calculated Osmolality 275 L Lactic Acid Calcium 9.5 Magnesium 2.2 Total Bilirubin 0.8 AST 19 ALT 13 Alkaline Phosphatase 75 Creatine Kinase 159 Troponin T Baseline Troponin T 120 Minute Delta Troponin T Troponin T Hi Sens 6Hr Troponin T Hi Sens 6Hr Delta NT-Pro-B Natriuret Pep 253 Total Protein 7.1 Albumin 4.1 Globulin 3.0 Triglycerides Cholesterol LDL Cholesterol, Calc HDL Cholesterol LDL/HDL Ratio Cholesterol/HDL Ratio Lipase 10 L TSH Free T4 1.63 Urine Color Urine Appearance Urine pH Ur Specific Baring Urine Protein Urine Glucose (UA) Urine Ketones Urine Blood Urine Nitrate Urine Bilirubin Urine Urobilinogen Ur Leukocyte Esterase Urine RBC Urine WBC Ur Squamous Epith Cells Amorphous Sediment Urine Bacteria Urine Mucus Serum Ketones Negative SARS-CoV-2 Ag (Rapid) 03/05/20 03/05/20 03/05/20 14:13 14:13 14:13 WBC RBC Hgb Hct MCV MCH MCHC RDW Plt Count MPV Neut % (Auto) Lymph % (Auto) Logan % (Auto) Eos % (Auto) Baso % (Auto) Neut # (Auto) Lymph # (Auto) Logan # (Auto) Eos # (Auto) Baso # (Auto) Nucleated RBC % (auto) Nucleated RBCs # PT INR Specimen Type Sample Site ABG pH ABG pCO2 ABG pO2 ABG HCO3 ABG Base Excess Carlos A Test Hematocrit O2 Delivery Device FiO2 Software Performance Engineer ID Sodium Potassium Chloride Carbon Dioxide Anion Gap BUN Creatinine GFR Calculation Glucose POC Glucose Estimat Average Glucose 160 Hemoglobin A1c 7.2 H Calculated Osmolality Lactic Acid 1.8 Calcium Magnesium Total Bilirubin AST ALT Alkaline Phosphatase Creatine Kinase Troponin T Baseline 33 H Troponin T 120 Minute Delta Troponin T Troponin T Hi Sens 6Hr Troponin T Hi Sens 6Hr Delta NT-Pro-B Natriuret Pep Total Protein Albumin Globulin Triglycerides Cholesterol LDL Cholesterol, Calc HDL Cholesterol LDL/HDL Ratio Cholesterol/HDL Ratio Lipase TSH Free T4 Urine Color Urine Appearance Urine pH Ur Specific Baring Urine Protein Urine Glucose (UA) Urine Ketones Urine Blood Urine Nitrate Urine Bilirubin Urine Urobilinogen Ur Leukocyte Esterase Urine RBC Urine WBC Ur Squamous Epith Cells Amorphous Sediment Urine Bacteria Urine Mucus Serum Ketones SARS-CoV-2 Ag (Rapid) 03/05/20 03/05/20 03/05/20 14:33 14:41 16:20 WBC RBC Hgb Hct MCV MCH MCHC RDW Plt Count MPV Neut % (Auto) Lymph % (Auto) Logan % (Auto) Eos % (Auto) Baso % (Auto) Neut # (Auto) Lymph # (Auto) Logan # (Auto) Eos # (Auto) Baso # (Auto) Nucleated RBC % (auto) Nucleated RBCs # PT INR Specimen Type Arterial Sample Site Brachial, right ABG pH 7.38 ABG pCO2 24.6 L ABG pO2 85.4 ABG HCO3 14.5 L ABG Base Excess -9.0 L Carlos A Test N/a Hematocrit 36.0 L O2 Delivery Device None FiO2 21.0 Software Performance Engineer ID Ed Sodium Potassium Chloride Carbon Dioxide Anion Gap BUN Creatinine GFR Calculation Glucose POC Glucose 187 Estimat Average Glucose Hemoglobin A1c Calculated Osmolality Lactic Acid Calcium Magnesium Total Bilirubin AST ALT Alkaline Phosphatase Creatine Kinase Troponin T Baseline Troponin T 120 Minute Delta Troponin T Troponin T Hi Sens 6Hr Troponin T Hi Sens 6Hr Delta NT-Pro-B Natriuret Pep Total Protein Albumin Globulin Triglycerides Cholesterol LDL Cholesterol, Calc HDL Cholesterol LDL/HDL Ratio Cholesterol/HDL Ratio Lipase TSH Free T4 Urine Color Yellow Urine Appearance Clear Urine pH 5.0 Ur Specific Baring 1.015 Urine Protein Neg Urine Glucose (UA) Norm Urine Ketones 1+ H Urine Blood Neg Urine Nitrate Negative Urine Bilirubin Neg Urine Urobilinogen Norm Ur Leukocyte Esterase Negative Urine RBC None Urine WBC Rare Ur Squamous Epith Cells 0-4 H Amorphous Sediment Not Reportable Urine Bacteria Trace Urine Mucus Trace Serum Ketones SARS-CoV-2 Ag (Rapid) 0803/05/20 03/05/20 16:22 17:40 20:20 WBC RBC Hgb Hct MCV MCH MCHC RDW Plt Count MPV Neut % (Auto) Lymph % (Auto) Logan % (Auto) Eos % (Auto) Baso % (Auto) Neut # (Auto) Lymph # (Auto) Logan # (Auto) Eos # (Auto) Baso # (Auto) Nucleated RBC % (auto) Nucleated RBCs # PT INR Specimen Type Sample Site ABG pH ABG pCO2 ABG pO2 ABG HCO3 ABG Base Excess Carlos A Test Hematocrit O2 Delivery Device FiO2 Software Performance Engineer ID Sodium Potassium Chloride Carbon Dioxide Anion Gap BUN Creatinine GFR Calculation Glucose POC Glucose Estimat Average Glucose Hemoglobin A1c Calculated Osmolality Lactic Acid Calcium Magnesium Total Bilirubin AST ALT Alkaline Phosphatase Creatine Kinase Troponin T Baseline Troponin T 120 Minute 28.86 H Delta Troponin T -4.14 L Troponin T Hi Sens 6Hr 26.56 H Troponin T Hi Sens 6Hr Delta -6.44 L NT-Pro-B Natriuret Pep Total Protein Albumin Globulin Triglycerides Cholesterol LDL Cholesterol, Calc HDL Cholesterol LDL/HDL Ratio Cholesterol/HDL Ratio Lipase TSH Free T4 Urine Color Urine Appearance Urine pH Ur Specific Baring Urine Protein Urine Glucose (UA) Urine Ketones Urine Blood Urine Nitrate Urine Bilirubin Urine Urobilinogen Ur Leukocyte Esterase Urine RBC Urine WBC Ur Squamous Epith Cells Amorphous Sediment Urine Bacteria Urine Mucus Serum Ketones SARS-CoV-2 Ag (Rapid) Negative 03/05/20 03/05/20 03/06/20 20:20 21:30 04:12 WBC RBC Hgb Hct MCV MCH MCHC RDW Plt Count MPV Neut % (Auto) Lymph % (Auto) Logan % (Auto) Eos % (Auto) Baso % (Auto) Neut # (Auto) Lymph # (Auto) Logan # (Auto) Eos # (Auto) Baso # (Auto) Nucleated RBC % (auto) Nucleated RBCs # PT 17.60 H INR 1.39 H Specimen Type Sample Site ABG pH ABG pCO2 ABG pO2 ABG HCO3 ABG Base Excess Carlos A Test Hematocrit O2 Delivery Device FiO2 Software Performance Engineer ID Sodium Potassium Chloride Carbon Dioxide Anion Gap BUN Creatinine GFR Calculation Glucose POC Glucose 156 Estimat Average Glucose Hemoglobin A1c Calculated Osmolality Lactic Acid Calcium Magnesium Total Bilirubin AST ALT Alkaline Phosphatase Creatine Kinase Troponin T Baseline Troponin T 120 Minute Delta Troponin T Troponin T Hi Sens 6Hr Troponin T Hi Sens 6Hr Delta NT-Pro-B Natriuret Pep Total Protein Albumin Globulin Triglycerides 186 H Cholesterol 92 LDL Cholesterol, Calc 21 L HDL Cholesterol 34 L LDL/HDL Ratio 0.62 Cholesterol/HDL Ratio 2.71 Lipase TSH 0.90 Free T4 Urine Color Urine Appearance Urine pH Ur Specific Baring Urine Protein Urine Glucose (UA) Urine Ketones Urine Blood Urine Nitrate Urine Bilirubin Urine Urobilinogen Ur Leukocyte Esterase Urine RBC Urine WBC Ur Squamous Epith Cells Amorphous Sediment Urine Bacteria Urine Mucus Serum Ketones SARS-CoV-2 Ag (Rapid) 03/06/20 03/06/20 06:50 10:35 WBC RBC Hgb Hct MCV MCH MCHC RDW Plt Count MPV Neut % (Auto) Lymph % (Auto) Logan % (Auto) Eos % (Auto) Baso % (Auto) Neut # (Auto) Lymph # (Auto) Logan # (Auto) Eos # (Auto) Baso # (Auto) Nucleated RBC % (auto) Nucleated RBCs # PT INR Specimen Type Sample Site ABG pH ABG pCO2 ABG pO2 ABG HCO3 ABG Base Excess Carlos A Test Hematocrit O2 Delivery Device FiO2 Software Performance Engineer ID Sodium Potassium Chloride Carbon Dioxide Anion Gap BUN Creatinine GFR Calculation Glucose POC Glucose 167 176 Estimat Average Glucose Hemoglobin A1c Calculated Osmolality Lactic Acid Calcium Magnesium Total Bilirubin AST ALT Alkaline Phosphatase Creatine Kinase Troponin T Baseline Troponin T 120 Minute Delta Troponin T Troponin T Hi Sens 6Hr Troponin T Hi Sens 6Hr Delta NT-Pro-B Natriuret Pep Total Protein Albumin Globulin Triglycerides Cholesterol LDL Cholesterol, Calc HDL Cholesterol LDL/HDL Ratio Cholesterol/HDL Ratio Lipase TSH Free T4 Urine Color Urine Appearance Urine pH Ur Specific Baring Urine Protein Urine Glucose (UA) Urine Ketones Urine Blood Urine Nitrate Urine Bilirubin Urine Urobilinogen Ur Leukocyte Esterase Urine RBC Urine WBC Ur Squamous Epith Cells Amorphous Sediment Urine Bacteria Urine Mucus Serum Ketones SARS-CoV-2 Ag (Rapid) Micro: Microbiology 03/05/20 14:13 Blood Culture - Preliminary Blood SPECIMEN COLLECTED 03/05/20 14:19 Blood Culture - Preliminary Blood SPECIMEN COLLECTED Cardiac Studies: No Data to Display
[2020-03-06] MEDS: sodium chloride 0.9% 1,000 ML 30 ML IV (11:26)
--- NOTE | 2020-03-06 12:24 | P.CONIM_ITS ---
Providers/Reason For Consult Consulting Physican/Specialty*: Internal medicine/endoscopy Reason for Consult*: Dysphagia with vomiting on eating Requesting Physcian: Dr. Aguilar Attending Physician: Dre Aguilar MD Primary Care Provider: Sharon Gleason NP History of Present Illness History of Present Illness Tulio Arndt is a 80 year old male who presents to the hospital with a 3- month history of lots of trouble swallowing and nausea and vomiting on swallowing he says that food goes down to esophagus and is soon as it gets in his stomach it comes right back up. He deals with a lot of heartburn and indigestion as well. I have done upper endoscopies on him before. He denies any melena or hematemesis. He denies weight loss. Review of Systems General: Reports: 10 or more systems reviewed and unremarkable except in HPI and below Meds/Allergies Home Medications and Allergies Home Medications Medication Instructions Recorded Confirmed Last Taken Type allopurinol 100 mg PO DAILY 03/05/20 03/05/20 03/04/20 History apixaban 5 mg PO BID 03/05/20 03/05/20 03/04/20 History aspirin [Aspirin Low Dose] 81 mg PO DAILY 03/05/20 03/05/20 03/04/20 History benazepril 40 mg PO DAILY 03/05/20 03/05/20 03/04/20 History cholecalciferol (vitamin D3) 25 mcg PO DAILY 03/05/20 03/05/20 03/04/20 History finasteride 5 mg PO DAILY 03/05/20 03/05/20 03/04/20 History folic acid 1 mg PO DAILY 03/05/20 03/05/20 03/04/20 History glipizide 10 mg PO BID 03/05/20 03/05/20 03/04/20 History insulin aspart U-100 5 unit SUBCUT TID 03/05/20 03/05/20 03/03/20 History insulin glargine 70 units PO DAILY 03/05/20 03/05/20 03/03/20 History isosorbide mononitrate 60 mg PO DAILY 03/05/20 03/05/20 03/04/20 History metformin 850 mg PO TID 03/05/20 03/05/20 03/04/20 History methotrexate sodium 25 mg IM Q7D 03/05/20 03/05/20 Unknown History metoprolol tartrate 100 mg PO DAILY 03/05/20 03/05/20 03/04/20 History nitroglycerin 0.4 mg SUBLINGUAL Q5M PRN 03/05/20 03/05/20 Unknown History omeprazole 20 mg PO DAILY 03/05/20 03/05/20 Unknown History pioglitazone 15 mg PO DAILY 03/05/20 03/05/20 03/04/20 History pravastatin 80 mg PO DAILY 03/05/20 03/05/20 03/04/20 History spironolactone 12.5 mg PO DAILY 03/05/20 03/05/20 Unknown History tamsulosin 0.4 mg PO DAILY 03/05/20 03/05/20 03/04/20 History Allergies Allergy/AdvReac Type Severity Reaction Status Date / Time Penicillins Allergy Unknown Verified 03/05/20 15:33 Current Medications Current Medications Generic Name Dose Route Start Last Admin Trade Name Freq PRN Reason Stop Dose Admin Allopurinol 100 mg 03/06/20 09:00 03/06/20 10:30 Zyloprim PO Not Given DAILY [facility] Aspirin 81 mg 03/06/20 09:00 03/06/20 10:30 Aspirin Ec PO Not Given DAILY [facility] Atorvastatin Calcium 20 mg 03/06/20 09:00 03/06/20 10:30 Lipitor PO Not Given DAILY [facility] Finasteride 5 mg 03/06/20 09:00 03/06/20 10:30 Proscar PO Not Given DAILY [facility] Folic Acid 1 mg 03/06/20 09:00 03/06/20 10:30 Folic Acid PO Not Given DAILY [facility] Dextrose/Sodium Chloride 1,000 mls @ 100 mls/hr 03/05/20 21:08 03/06/20 07:35 Dextrose 5%-Sod Chloride 0.45% IV 100 mls/hr .Q10H [facility] Administration Sodium Chloride 1,000 mls @ 30 mls/hr 03/06/20 11:30 03/06/20 11:26 Sodium Chloride 0.9% IV 03/07/20 11:29 30 mls/hr .Q24H [facility] Administration Insulin Aspart 0 unit 03/05/20 21:08 03/06/20 09:47 Novolog SUBCUT Not Given TIDWM [facility] Protocol Insulin Glargine 35 unit 03/05/20 23:00 03/05/20 22:54 Lantus SUBCUT 35 unit QPM [facility] Administration Isosorbide Mononitrate 60 mg 03/06/20 09:00 03/06/20 10:29 Imdur PO Not Given DAILY [facility] Lisinopril 40 mg 03/06/20 09:00 03/06/20 10:29 Prinivil PO Not Given DAILY [facility] Metoprolol Tartrate 100 mg 03/06/20 09:00 03/06/20 10:26 Lopressor PO Not Given DAILY [facility] Pantoprazole Sodium 40 mg 03/06/20 09:00 03/06/20 10:26 Protonix PO Not Given DAILY [facility] Spironolactone 12.5 mg 03/06/20 09:00 03/06/20 10:25 Aldactone PO Not Given DAILY [facility] Tamsulosin HCl 0.4 mg 03/06/20 09:00 03/06/20 10:25 Flomax PO Not Given DAILY [facility] Vitamin D 1,000 unit 03/06/20 09:00 03/06/20 10:30 Vitamin D3 PO Not Given DAILY [facility] PFSH Acute PFSH: Medical History (Updated 03/05/20 @ 18:05 by Tamara Morales) BPH (benign prostatic hyperplasia) Dyslipidemia Esophageal stricture Psoriasis Sick sinus syndrome Surgical History (Updated 03/05/20 @ 17:37 by Dre Aguilar MD) History of permanent cardiac pacemaker placement Family History (Updated 03/05/20 @ 17:37 by Dre Aguilar MD) Daughter Pancreatic cancer Social History (Updated 03/05/20 @ 17:38 by Dre Aguilar MD) Smoking and tobacco status: never smoked Alcohol intake: current Alcohol intake frequency: holidays/special occasions only Substance/Drug Use: never Vitals/I&O/Wt Last Vital Signs Temp 97.5 F L 03/06/20 11:10 Pulse 77 03/06/20 11:10 Resp 18 03/06/20 11:10 BP 114/71 03/06/20 11:10 Pulse Ox 98 03/06/20 11:10 03/05/20 03/06/20 03/06/20 22:59 06:59 14:59 Intake Total 1999 240 / 2240 1000 / 1000 Output Total 350 / 350 Balance 2000 / 2000 -110 / 1890 1000 / 1000 Weight last 48 hrs Weight 238 lb Physical Exam Const: COMMON NORMALS: no acute distress, alert and well nourished GENERAL APPEARANCE: cooperative, well kempt, well developed and well hydrated; does not appear older than stated age ORIENTATION/CONSCIOUSNESS: Yes oriented to person, Yes oriented to place and Yes oriented to time HENMT: COMMON NORMALS: normocephalic, external ears normal and TM's normal bilaterally HEAD & SCALP: normocephalic EXTERNAL EAR: Yes external ears normal TYMPANIC MEMBRANE: TM's normal bilaterally MOUTH: Normal oral and palatal mucosa present Eye: COMMON NORMALS: Equal, round and reactive pupils present GENERAL EYE: appearance normal, both eyes and all related structures and normal light reflex VISUAL ACUITY: Yes acuity normal PUPIL: Yes Equal, round and reactive pupils present DIRECT OPHTHALMOSCOPY: Yes normal light reflex Neck/C-Spine: COMMON NORMALS: full ROM, no lymphadenopathy, supple, no JVD, Thyroid normal and No carotid bruits GENERAL: Yes trachea midline THYROID: Thyroid normal, no masses and nontender Lymph: LYMPHATIC: no lymphadenopathy noted Chest: CHEST: Yes Symmetrical chest wall rise Resp: COMMON NORMALS: normal respiratory effort and clear to auscultation bilaterally AUSCULTATION: clear to auscultation bilaterally Cardio: COMMON NORMALS: no JVD, regular rhythm and No murmurs present (Cardio) PALPATION: normal PMI RHYTHM: regular rhythm GI: COMMON NORMALS: non-tender, no masses and no bruits INSPECTION: Yes normal to inspection, No scar and No striae AUSCULTATION: Yes normoactive bowel sounds PALPATION: No Guarding due to palpation present (GI), No Rigid due to palpation, No Hernia present and No Rebound tenderness present PERCUSSION: normal to percussion RECTAL EXAM: Yes deferred Back/Pelvis: COMMON NORMALS: thoracic and lumbar spine normal to inspection GENERAL BACK: No tenderness Extremity: COMMON NORMALS: normal to inspection, no clubbing, cyanosis or edema and no calf tenderness Neuro: SENSORIUM/ORIENTATION: Yes alert, Yes oriented to person, Yes oriented to place and Yes oriented to time CRANIAL NERVES: Yes CN normal except as noted MOTOR EXAM: 5/5 motor strength present throughout Psych: COMMON NORMALS: mental status grossly normal APPEARANCE: Yes grossly normal and Yes well kempt ATTITUDE: Yes calm Skin: COMMON NORMALS: turgor normal GENERAL SKIN EXAM: turgor normal and no scars LESIONS: no lesions TRAUMA: no lacerations or abrasions Data Micro: Micro: Microbiology 03/05/20 14:13 Blood Culture - Pr eliminary Blood SPECIMEN [facility] 03/05/20 14:19 Blood Culture - Pr eliminary Blood SPECIMEN [facility] A&P Assessment and plan (1) Intractable vomiting: Status: Acute Qualifiers: Nausea presence: with nausea Vomiting type: unspecified Qualified Code(s): R11.2 - Nausea with vomiting, unspecified Additional A&P Information We will proceed with an upper endoscopy for diagnostic and therapeutic purposes. 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
--- NOTE | 2020-03-06 12:53 | PC.CHAP ---
Pastoral Care Encounter/Spiritual Assessment Type of Contact [] Declined broker associate visit [] Patient/Family/Request visit [] Outpatient visit [] Follow-up visit [] Physician referral [] Code/Alert [] Routine visit [] Staff referral [] Actively dying [] Patient sleeping [] Family support [] [xx] Out of room [] Palliative care [] [] Receiving care in room [] Pre-surgical visit [] Trauma [] Long length of stay [] ICU visit [xx] Other: Follow up needed Relational/Emotional Strength [] Patient feels connected with others/family/visitors/staff [] Distress [] Loneliness/isolation [] Abandonment Spirituality of Patient [] Person of [place] [] Attends Voodoo of their [place] [] Believes in Prayer [] Reads Bible or Mu-Ism materials [] There are Spiritual issues to be addressed Blackjack Dealer Interventions [] Prayer [] Active listening [] Non-anxious presence [] Spiritual/emotional support [] Crisis/trauma care [] Spiritual counseling [] Bereavement support [] Provided bereavement packet [] Provided Bible/devotional materials [] Provided toy/stuffed animal, coloring book to patient or family member [] Provided Communion [] Anointing/[place] [] Salvation [] Completed spiritual assessment [] Other: Impact on Illness or Injury [] Angry [] Fearful [] Anxious [] Often cries [] Exhaustion [] Unable to work [] Unable to attend holiness [] Unable to walk/stand [] Unable to read [] Unable to drive [] Unable to eat/drink [] Unable to sleep [] Unable to be with family [] Patient intubated [] Other: Summary Patient out of room for multiple lengthy tests and was still out of room when Blackjack Dealer finished rounds. Follow up needed Time spent with patient 2 minutes record keeping
--- NOTE | 2020-03-06 16:25 | PM.DCS ---
Discharge Providers Date of Admission: 03/05/20 17:27 Date of Discharge: March 06, 2020 Attending Provider at Admission: Dre Aguilar MD Attending Provider at Discharge: Dre Aguilar MD Primary Care Provider: Sharon Gleason NP Diagnoses at Discharge Discharge Diagnosis (1) Intractable vomiting: Status: Acute Qualifiers: Nausea presence: with nausea Vomiting type: unspecified Qualified Code(s): R11.2 - Nausea with vomiting, unspecified Reason for Visit Reason for Visit: d/weight loss Hospital Course Discharge Summary: Tulio Arndt is a 79 year old male with a past medical history of dementia, insulin-dependent type 2 diabetes mellitus, psoriasis on methotrexate, atrial fibrillation on Eliquis, history of pulmonary embolism on Eliquis, hypertension, hyperlipidemia, history of CAD, history of BPH, history of esophageal strictures status post dilatation, history of sick sinus syndrome status post pacemaker placement, gout who presents to [facility] due to 2 weeks history of nausea, vomiting, poor appetite, difficulty swallowing, weight loss. Patient was admitted to [facility] for dehydration, ESTEFANÍA, dysphagia, abdominal pain. Patient CT scan of the abdomen had no acute findings. Hemoglobin 12.1. Patient underwent a EGD by Dr. Reynolds, which showed duodenitis and severe gastritis. Patient was transitioned to a clear liquid diet, tolerated it well, but patient did not really have an appetite which was 1 of his major issues, but said that he could tolerate most consistencies. I have discharged the patient on Protonix 40 twice daily, instructions to slowly advance diet, to follow-up with Dr. Reynolds in the next 1 to 2 weeks. Physical Exam Const: COMMON NORMALS: no acute distress and patient oriented x3 HENMT: COMMON NORMALS: normocephalic HEAD & SCALP: normocephalic Neck/C-Spine: COMMON NORMALS: no JVD Resp: COMMON NORMALS: normal respiratory effort, No retractions, No use of accessory muscles and clear to auscultation bilaterally AUSCULTATION: clear to auscultation bilaterally Cardio: COMMON NORMALS: no JVD, regular rate, regular rhythm, S1 normal heart sound present and S2 normal heart sound present RATE: regular rate RHYTHM: regular rhythm HEART SOUNDS: S1 normal heart sound present and S2 normal heart sound present GI: COMMON NORMALS: Normal to inspection, nondistended, normoactive bowel sounds present, Soft to palpation, non-tender, No hepatosplenomegaly present, no masses and no bruits PALPATION: Yes Soft to palpation and Yes No hepatosplenomegaly present Extremity: COMMON NORMALS: capillary refill normal, no clubbing, cyanosis or edema, no calf tenderness and no pedal edema Neuro: COMMON NORMALS: patient oriented x3 Psych: COMMON NORMALS: mental status grossly normal Discharge Data Data Completed and Pending: Completed Studies During Hospitalization Category Date Time Status CT abdomen pelvis w con* [id number] Stat Cat Scan 03/05/20 14:[address] cervical spin wo con* [id number] Urge nt Cat Scan 03/05/20 14:[address] head wo con* 7 [id number] Stat Cat Scan 03/05/20 14:11 Completed XR chest 1V khris ble [id number] Stat Exams 03/05/20 14:05 Completed US gall bladder 7 [id number] Urgent Ultrasound 03/05/20 15:58 Completed Pending at discharge Category Date Time Status Blood Culture Sta t Lab 03/05/20 14:13 Results Clostridioides Di fficile PCR Routin e Lab 03/05/20 21:08 Ordered Enteric Bacterial Panel by PCR Rout ine Lab 03/05/20 21:08 Ordered Enteric Parasite Panel by PCR Routi ne Lab 03/05/20 21:08 Ordered H. Pylori / BOB T est Routine Lab 03/06/20 12:37 Ordered Helicobacter Pylo ri AG Stool Stat Lab 03/05/20 21:08 Uncollected Immunochemical Fe alcides OCB Routine Lab 03/05/20 21:08 Ordered Immunochemical Fe alcides OCB Stat Lab 03/05/20 21:08 Uncollected Lactoferrin Routi ne Lab 03/05/20 21:08 Ordered Lactoferrin Stat Lab 03/05/20 21:08 Uncollected Labs from last 24 hours 03/06/20 03/06/20 03/06/20 10:35 06:50 04:12 PT 17.60 H INR 1.39 H POC Glucose 176 167 Estimat Average Gl ucose Hemoglobin A1c Troponin T 120 Min rosebud Delta Troponin T Troponin T Hi Sens 6Hr Troponin T Hi Sens 6Hr Delta Triglycerides Cholesterol LDL Cholesterol, C alc HDL Cholesterol LDL/HDL Ratio Cholesterol/HDL Ra bibi TSH Urine Color Urine Appearance Urine pH Ur Specific Gravit y Urine Protein Urine Glucose (UA) Urine Ketones Urine Blood Urine Nitrate Urine Bilirubin Urine Urobilinogen Ur Leukocyte Jessie ase Urine RBC Urine WBC Ur Squamous Epith Cells Amorphous Sediment Urine Bacteria Urine Mucus SARS-CoV-2 Ag (Rap id) 03/05/20 03/05/20 03/05/20 21:30 20:20 20:20 PT INR POC Glucose 156 Estimat Average Gl ucose Hemoglobin A1c Troponin T 120 Min rosebud Delta Troponin T Troponin T Hi Sens 6Hr 26.56 H Troponin T Hi Sens 6Hr Delta -6.44 L Triglycerides 186 H Cholesterol 92 LDL Cholesterol, C alc 21 L HDL Cholesterol 34 L LDL/HDL Ratio 0.62 Cholesterol/HDL Ra bibi 2.71 TSH 0.90 Urine Color Urine Appearance Urine pH Ur Specific Gravit y Urine Protein Urine Glucose (UA) Urine Ketones Urine Blood Urine Nitrate Urine Bilirubin Urine Urobilinogen Ur Leukocyte Jessie ase Urine RBC Urine WBC Ur Squamous Epith Cells Amorphous Sediment Urine Bacteria Urine Mucus SARS-CoV-2 Ag (Rap id) 03/05/20 03/05/20 03/05/20 17:40 16:22 16:20 PT INR POC Glucose Estimat Average Gl ucose Hemoglobin A1c Troponin T 120 Min rosebud 28.86 H Delta Troponin T -4.14 L Troponin T Hi Sens 6Hr Troponin T Hi Sens 6Hr Delta Triglycerides Cholesterol LDL Cholesterol, C alc HDL Cholesterol LDL/HDL Ratio Cholesterol/HDL Ra bibi TSH Urine Color Yellow Urine Appearance Clear Urine pH 5.0 Ur Specific Gravit y 1.015 Urine Protein Neg Urine Glucose (UA) Norm Urine Ketones 1+ H Urine Blood Neg Urine Nitrate Negative Urine Bilirubin Neg Urine Urobilinogen Norm Ur Leukocyte Jessie ase Negative Urine RBC None Urine WBC Rare Ur Squamous Epith Cells 0-4 H Amorphous Sediment Not Reportable Urine Bacteria Trace Urine Mucus Trace SARS-CoV-2 Ag (Rap id) Negative 03/05/20 14:13 PT INR POC Glucose Estimat Average Gl ucose 160 Hemoglobin A1c 7.2 H Troponin T 120 Min rosebud Delta Troponin T Troponin T Hi Sens 6Hr Troponin T Hi Sens 6Hr Delta Triglycerides Cholesterol LDL Cholesterol, C alc HDL Cholesterol LDL/HDL Ratio Cholesterol/HDL Ra bibi TSH Urine Color Urine Appearance Urine pH Ur Specific Gravit y Urine Protein Urine Glucose (UA) Urine Ketones Urine Blood Urine Nitrate Urine Bilirubin Urine Urobilinogen Ur Leukocyte Jessie ase Urine RBC Urine WBC Ur Squamous Epith Cells Amorphous Sediment Urine Bacteria Urine Mucus SARS-CoV-2 Ag (Rap id) Vitals: Last Vital Signs Temp 98.2 F 03/06/20 15:37 Pulse 71 03/06/20 15:37 Resp 16 03/06/20 15:37 BP 148/77 03/06/20 15:37 Pulse Ox 98 03/06/20 15:37 Discharge Plan Discharge Patient Disposition: Home Condition: Stable Prescriptions: New pantoprazole [Protonix] 40 mg tablet,delayed release (DR/EC) 40 mg PO BID 30 Days Qty: 60 RF: 0 Continued pioglitazone 15 mg Tablet 15 mg PO DAILY RF: 0 metoprolol tartrate 100 mg Tablet 100 mg PO DAILY RF: 0 glipizide 10 mg Tablet 10 mg PO BID RF: 0 metformin 850 mg Tablet 850 mg PO TID RF: 0 allopurinol 100 mg Tablet 100 mg PO DAILY RF: 0 methotrexate sodium 25 mg/mL Solution 25 mg IM Q7D RF: 0 Aspirin Low Dose 81 mg Tablet,Delayed Release (Dr/Ec) 81 mg PO DAILY RF: 0 spironolactone 25 mg Tablet 12.5 mg PO DAILY RF: 0 isosorbide mononitrate 60 mg Tablet Extended Release 24 Hr 60 mg PO DAILY RF: 0 pravastatin 80 mg Tablet 80 mg PO DAILY RF: 0 tamsulosin 0.4 mg Capsule 0.4 mg PO DAILY RF: 0 nitroglycerin 0.4 mg Tablet, Sublingual 0.4 mg SUBLINGUAL Q5M PRN (Reason: CHEST PAINS) RF: 0 omeprazole 20 mg Capsule,Delayed Release(Dr/Ec) 20 mg PO DAILY RF: 0 folic acid 1 mg Tablet 1 mg PO DAILY RF: 0 benazepril 40 mg Tablet 40 mg PO DAILY RF: 0 finasteride 5 mg Tablet 5 mg PO DAILY RF: 0 insulin aspart U-100 100 unit/mL (3 mL) Insulin Pen 5 unit SUBCUT TID RF: 0 cholecalciferol (vitamin D3) 25 mcg (1,000 unit) Tablet 25 mcg PO DAILY RF: 0 apixaban 5 mg Tablet 5 mg PO BID RF: 0 insulin glargine 70 units PO DAILY RF: 0 Discharge Orders: Discharge Order (Routine); Ordered 03/06/20 Ordered By: Dre Aguilar Referrals: Sharon Gleason, [employer] [Primary Care Provider] - Discharge Diet: Regular and GI Soft Discharge Activity: Resume usual activity Patient Instructions: Dehydration - Adult, GI Discharge Instructions Activity Restrictions/Additional Instructions: -Please take Protonix 40 twice daily -Follow with primary care in 1 week Discharge Attestations Time Spent in Discharge Care*: less than 30 min Quality Metrics Clinical Quality Measures During this hospital stay, did patient experience: None Coding Level of Care Code 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
[2020-03-06 17:08] LABS: Glucose Point of Care 132 mg/dL (70-110)
[2020-03-06] MEDS: insulin glargine 100 units/1 mL 35 UNIT SUBCUT (18:04)
[2020-03-06] MEDS: apixaban 5 mg Tablet PO (18:04)
[2020-03-06] MEDS: pantoprazole DR 40 mg Tablet PO (18:04)
[2020-03-09 07:14] LABS: H. Pylori / CLO Test Negative
== END 2020-03-06 18:50 | disposition home or self-care (01) ==
LOC: ER 19:26 → MEDSURG 20:37
PROVIDERS: Emergency Medicine; Internal Medicine; Admitting Provider Family Medicine; PCP Nurse Practitioner Family; Visit Provider Family Medicine
PROC: 0DJ08ZZ Inspection of Upper Intestinal Tract, Via Natural or Artificial Opening Endoscopic (ICD-10-PCS; CPT 43235; principal; 2020-03-06 11:00)
DX: K29.70 Gastritis, unspecified, without bleeding (principal); K26.7 Chronic duodenal ulcer without hemorrhage or perforation; E86.0 Dehydration; E78.5 Hyperlipidemia, unspecified; E11.9 Type 2 diabetes mellitus without complications; F03.90 Unspecified dementia, unspecified severity, without behavioral disturbance, psychotic disturbance, mood disturbance, and anxiety; I48.91 Unspecified atrial fibrillation; Z79.01 Long term (current) use of anticoagulants; I10 Essential (primary) hypertension; I25.10 Atherosclerotic heart disease of native coronary artery without angina pectoris; Z95.0 Presence of cardiac pacemaker; Z86.711 Personal history of pulmonary embolism; K21.9 Gastro-esophageal reflux disease without esophagitis; Z79.4 Long term (current) use of insulin; Z88.0 Allergy status to penicillin; N17.9 Acute kidney failure, unspecified; I49.5 Sick sinus syndrome; L40.9 Psoriasis, unspecified; N40.0 Benign prostatic hyperplasia without lower urinary tract symptoms
CPT/HCPCS: 12345; 36415; 36416; 36600; 43239; 70450; 71045; 72125; 74177; 76705; 80053; 80061; 81001; 82009; 82550; 82803; 82962; 83036; 83605; 83690; 83735; 83880; 84439; 84443; 84484; 85025; 85610; 87040; 87077; 87426; 93005; 96361; 96372; 96374; 96375; 97116; 97161; 97165; 99253; 99284; 99285; 99398; G0378; J1815 ×2; J2405; J2704; J7030; J7799; Q9967

== ENCOUNTER 2020-06-12 20:24 | Emergency (ER) | payer OTHER, MEDICARE, SELFPAY ==
[2020-06-12 20:48] VITALS: BP 89/61; PULSE 97; RESP 20; TEMP 36.1; O2SAT 98; BMI 30.2
[2020-06-12 23:07] VITALS: BP 99/62; PULSE 87; RESP 19; O2SAT 96
--- NOTE | 2020-06-12 23:19 | W.ED.ABDPA2 ---
HPI - Abdominal Pain General: Chief Complaint: Abdominal Pain Stated Complaint: upper abdomen pain goes through to back Time Seen by Provider: 06/12/20 22:48 History of Present Illness: HPI narrative: Patient is a 80-year-old male who comes to the ED with chest pain. Patient has past medical history of GERD, type 2 diabetes, hypertension, CAD, BPH and dyslipidemia. Patient says left-sided chest pain pain started today while he was sitting at home. He says chest pain is located in the left lower side of chest and he says the pain radiates to the back. When he takes a deep breath he does feel little bit of the pain and he says it is sore to the touch on the left side of his chest. Patient also stated that he fell around mid day today while outside in the grass. He fell forward hitting chest on the ground. Denies any head trauma or loss of consciousness. He states he did not notice any chest pain until a couple hours after fall. Patient also has had a decreased appetite for the past couple weeks and hardly eats anything throughout the day. Associated Symptoms: Denies chills, constipation, diarrhea, dysuria, fever(s), hematochezia, hematuria, nausea and vomiting Review of Systems Const: Reports: change in appetite (decreased appetite); Denies: fever(s), chills or fatigue Eyes: Denies: change in vision or eye discomfort ENMT: Denies: throat pain, odynophagia, nasal discharge or nasal congestion Card: Reports: chest pain (pleuritic chest pain); Denies: palpitations, edema, swelling of feet/ankles, dyspnea on exertion or orthopnea Resp: Reports: pain on inspiration (left side of chest); Denies: dyspnea, productive cough or non-productive cough GI: Denies: abdominal pain, nausea, vomiting, diarrhea, constipation or hematochezia : Denies: flank pain, difficulty urinating, dysuria or hematuria Musc: Denies: neck pain, back pain or extremity swelling Skin/Breast: Denies: rash or new lesions Neuro: Denies: headache(s), numbness in extremities or weakness in extremities PFS ED PFSH: Medical History BPH (benign prostatic hyperplasia) Dyslipidemia Esophageal stricture Psoriasis Sick sinus syndrome Surgical History History of permanent cardiac pacemaker placement Family History Daughter Pancreatic cancer Social History Smoking and tobacco status: never smoked Alcohol intake: current Alcohol intake frequency: holidays/special occasions only History of recent travel: No Physical Exam Const: COMMON NORMALS: no acute distress, patient oriented x3 and alert GENERAL APPEARANCE: cooperative and comfortable HENMT: COMMON NORMALS: normocephalic HEAD & SCALP: normocephalic MOUTH: Normal oral and palatal mucosa present THROAT: posterior oropharynx normal and uvula midline Eye: COMMON NORMALS: Equal, round and reactive pupils present and EOMs intact bilaterally PUPIL: Yes Equal, round and reactive pupils present Neck/C-Spine: COMMON NORMALS: supple GENERAL: Yes normal visual inspection Chest: CHEST: Yes tenderness rib left anterior-axillary line involving the 5th rib, involving the 6th rib and involving the 7th rib Resp: COMMON NORMALS: normal respiratory effort, No retractions, No use of accessory muscles and clear to auscultation bilaterally AUSCULTATION: clear to auscultation bilaterally Cardio: COMMON NORMALS: regular rate, regular rhythm, S1 normal heart sound present, S2 normal heart sound present, No gallops present (Cardio), No clicks present (Cardio), No murmurs present (Cardio) and Peripheral pulses 2+ throughout RATE: regular rate RHYTHM: regular rhythm HEART SOUNDS: S1 normal heart sound present and S2 normal heart sound present PERIPHERAL PULSES: Peripheral pulses 2+ throughout GI: COMMON NORMALS: Normal to inspection, nondistended, normoactive bowel sounds present, Soft to palpation and no masses PALPATION: Yes Soft to palpation and Yes Tenderness to palpation present (GI) Details: other (Periumbilical area tenderness upon light and deep palpation.) : COMMON NORMALS: Yes no CVA tenderness BLADDER/KIDNEY EXAM: Yes no CVA tenderness Back/Pelvis: COMMON NORMALS: no CVA tenderness Extremity: COMMON NORMALS: normal to inspection and no pedal edema Neuro: COMMON NORMALS: patient oriented x3, CN's II-XII intact bilaterally and moves all extremities SENSORIUM/ORIENTATION: Yes alert GAIT: Yes Normal gait present MOTOR EXAM: 5/5 motor strength present throughout Skin: GENERAL SKIN EXAM: dry skin Course Vital Signs: Vital signs: Vital Signs Temperature 97.0 F L 06/12/20 20:48 Pulse Rate 85 06/13/20 02:30 Respiratory Rate 15 06/13/20 02:30 Blood Pressure 108/63 06/13/20 02:30 Pulse Oximetry 99 06/13/20 02:30 MDM - Abdominal Pain MDM Narrative: Medical decision making narrative: Patient is a 80-year-old male comes to the ED with left-sided paretic chest pain. Past medical history of hypertension, dyslipidemia, diabetes, GERD, CAD and patient is on blood thinner apixaban. Patient did state that he fell earlier today, but says he noticed pain on left side of chest couple hours later while sitting in his chair. Physical exam shows some left lateral rib tenderness. Patient also has some periumbilical abdominal tenderness. Neuro exam was normal. CBC unremarkable. Blood glucose 353, sodium 127 which is likely artificially lowered due to elevated blood glucose. Potassium 5.6 with that is is normal compared to previous lab. Creatinine 1.3 which is also normal compared to his previous labs. Lipase 11. BNP 385 and troponin 32 which is lower than previous baseline from back in February 2020. First EKG showed a Q wave in the anterior septal leads, but this resolved with second EKG. Chest x-ray showed nondisplaced seventh rib fracture and no pneumothorax or lung consolidation seen. CT of abdomen was performed due to patient's abdominal tenderness and it showed no acute findings. CT of head showed no acute findings or bleeding. Patient was diagnosed with fall and left rib fracture. He was sent home with a prescription for hydrocodone to help with pain. Return to ED precautions given. Follow-up with PCP in 7 to 10 days. Patient understood and agreed with plan. Lab Data: Attestation: I reviewed the patient's lab results. Labs: Lab Results 06/12/20 06/12/20 06/12/20 Range/Units 22:54 22:54 22:54 WBC 7.1 (4.0-10.0) 10^3/ uL RBC 4.22 (4.1-5.3) 10^6/u L Hgb 13.0 (11.7-16.6) g/dL Hct 38.3 L (42.0-52.0) % MCV 90.8 (80-94) fL MCH 30.8 (28.0-34.0) pg MCHC 33.9 (30.0-36.0) g/dL RDW 12.7 (12.1-15.1) % Plt Count 213 (130-400) 10^3/c mm MPV 10.4 (7.4-10.4) fL Neut % (Auto) 63.4 % Lymph % (Auto) 22.1 % [place] % (Auto) 10.4 % Eos % (Auto) 2.7 % Baso % (Auto) 1.0 % Neut # (Auto) 4.53 (1.8-7.7) 10^3/u L Lymph # (Auto) 1.6 (0.8-4.8) 10^3/u L [place] # (Auto) 0.7 (0.2-0.9) 10^3/u L Eos # (Auto) 0.2 (0.0-0.8) 10^3/u L Baso # (Auto) 0.1 (0.0-0.1) 10^3/u L Nucleated RBC % (a uto) 0 % Nucleated RBCs # 0.0 /100WBC Sodium 127 L (136-145) mmol/L Potassium 5.6 H (3.5-5.1) mmol/L Chloride 95 L (98-107) mmol/L Carbon Dioxide 18 L (22-29) mmol/L Anion Gap 19.6 H (5-19) BUN 57 H (8-23) mg/dL Creatinine 1.3 H (0.7-1.2) mg/dL GFR Calculation Not Reportable Glucose 353 H (65-115) mg/dL Calculated Osmolal ity 294 (285-295) mOsm/k g Calcium 10.3 (8.5-10.5) mg/dL Total Bilirubin 0.3 (0.15-1.2) mg/dL AST 13 (0-40) U/L ALT 12 (0-41) U/L Alkaline Phosphata se 116 (40-130) IU/L Troponin T Baselin e 32 H (0-15) ng/L NT-Pro-B Natriuret Pep (0-450) pg/mL Total Protein 7.0 (6.6-8.7) g/dL Albumin 4.1 (3.5-5.2) g/dL Globulin 2.9 (1.3-4.6) g/dL Lipase 11 L (13-60) U/L Urine Color (Yellow) Urine Appearance (CLEAR) Urine pH (5-7) Ur Specific Gravit y (1.005-1.030) Urine Protein (Negative) Urine Glucose (UA) (Normal) Urine Ketones (Negative) Urine Blood (Negative) Urine Nitrate (Negative) Urine Bilirubin (Negative) Urine Urobilinogen (Negative) mg/dL Ur Leukocyte Jessie ase (Negative) Urine RBC (0-2) /hpf Urine WBC (0-5) /hpf Ur Squamous Epith Cells (0-5) /hpf Amorphous Sediment Urine Bacteria (NONE) /hpf Hyaline Casts /lpf 06/12/20 06/12/20 Range/Units 22:54 23:38 WBC (4.0-10.0) 10^3/ uL RBC (4.1-5.3) 10^6/u L Hgb (11.7-16.6) g/dL Hct (42.0-52.0) % MCV (80-94) fL MCH (28.0-34.0) pg MCHC (30.0-36.0) g/dL RDW (12.1-15.1) % Plt Count (130-400) 10^3/c mm MPV (7.4-10.4) fL Neut % (Auto) % Lymph % (Auto) % [place] % (Auto) % Eos % (Auto) % Baso % (Auto) % Neut # (Auto) (1.8-7.7) 10^3/u L Lymph # (Auto) (0.8-4.8) 10^3/u L [place] # (Auto) (0.2-0.9) 10^3/u L Eos # (Auto) (0.0-0.8) 10^3/u L Baso # (Auto) (0.0-0.1) 10^3/u L Nucleated RBC % (a uto) % Nucleated RBCs # /100WBC Sodium (136-145) mmol/L Potassium (3.5-5.1) mmol/L Chloride (98-107) mmol/L Carbon Dioxide (22-29) mmol/L Anion Gap (5-19) BUN (8-23) mg/dL Creatinine (0.7-1.2) mg/dL GFR Calculation Glucose (65-115) mg/dL Calculated Osmolal ity (285-295) mOsm/k g Calcium (8.5-10.5) mg/dL Total Bilirubin (0.15-1.2) mg/dL AST (0-40) U/L ALT (0-41) U/L Alkaline Phosphata se (40-130) IU/L Troponin T Baselin e (0-15) ng/L NT-Pro-B Natriuret Pep 385 (0-450) pg/mL Total Protein (6.6-8.7) g/dL Albumin (3.5-5.2) g/dL Globulin (1.3-4.6) g/dL Lipase (13-60) U/L Urine Color Straw (Yellow) Urine Appearance Clear (CLEAR) Urine pH 5 (5-7) Ur Specific Gravit y 1.015 (1.005-1.030) Urine Protein Neg (Negative) Urine Glucose (UA) 4+ H (Normal) Urine Ketones Negative (Negative) Urine Blood Neg (Negative) Urine Nitrate Negative (Negative) Urine Bilirubin Neg (Negative) Urine Urobilinogen Norm (Negative) mg/dL Ur Leukocyte Jessie ase Negative (Negative) Urine RBC None (0-2) /hpf Urine WBC None (0-5) /hpf Ur Squamous Epith Cells 0-4 H (0-5) /hpf Amorphous Sediment Not Reportable Urine Bacteria Trace (NONE) /hpf Hyaline Casts 0-4 H /lpf Imaging Data ^: CXR: Attestation: I personally reviewed and interpreted this imaging study as follows: Radiologist's impression: [address] [address] XRay Report Signed Patient: Tulio Arndt Unit #: [id number] : 1940 Age/Sex: 80 / M ADM Date: 06/12/20 Loc: ER Room/Bed: Attending Dr: Ordering Provider/Ordering MD: Shemar Titus Date of Service: 06/12/20 Procedure(s): XR ribs LT mn 3V w CXR1V [id number] Accession Number(s): [id number] Report Number: [id number] PROCEDURE INFORMATION: Exam: XR Left Ribs with PA Chest, 3 Views Exam date and time: 06/12/2020 11:59 PM Age: 80 years old Clinical indication: Chest wall pain; Prior surgery; Surgery type: Pacer; Patient HX: Left rib pain with severe SOB. Patient had difficulty following breathing instructions and positioning. ; Additional info: Cp/left rib pain TECHNIQUE: Imaging protocol: XR Left ribs 3 views with PA chest. COMPARISON: CR XR chest 1V portable [id number] 03/05/2020 2:51 PM FINDINGS: Tubes, catheters and devices: Left-sided permanent pacemaker noted, unchanged. Lungs: Unremarkable. No consolidation. Pleural space: Unremarkable. No pleural effusion. No pneumothorax. Heart/Mediastinum: Unremarkable. No cardiomegaly. Vasculature: The thoracic aorta is mildly atherosclerotic. Bones/joints: Nondisplaced fracture of the lateral left 7th rib near the costochondral junction. No additional fractures are identified. XR/XR ribs LT mn 3V w CXR1V [id number] IMPRESSION: 1. Nondisplaced fracture of the lateral left 7th rib near the costochondral junction. No associated pneumothorax. 2. No additional fractures are identified. Dictated By: Mustapha Ramirez MD Signed By: Mustapha Ramirez MD Signed Date/Time: 06/13/2030 DD/ CT Head: Attestation: I personally reviewed and interpreted this imaging study as follows: Radiologist's impression: [address] [address] [address] Scan Report Signed Patient: Tulio Arndt Unit #: [id number] : 1940 Age/Sex: 80 / M ADM Date: 06/12/20 Loc: ER Room/Bed: Attending Dr: Ordering Provider/Ordering MD: Shemar Titus Date of Service: 06/13/20 Procedure(s): CT head wo con* [id number] Accession Number(s): [id number] Report Number: [id number] PROCEDURE INFORMATION: Exam: CT Head Without Contrast Exam date and time: 06/13/2020 12:46 AM Age: 80 years old Clinical indication: Injury or trauma; Blunt trauma (contusions or hematomas); Patient HX: Fall today TECHNIQUE: Imaging protocol: Computed tomography of the head without contrast. Radiation optimization: All CT scans at this facility use at least one of these dose optimization techniques: automated exposure control; mA and/or kV adjustment per patient size (includes targeted exams where dose is matched to clinical indication); or iterative reconstruction. COMPARISON: CT head wo con* [id number] 03/05/2020 3:08 PM RADIATION DOSE METRICS: Total DLP (mGy-cm): 1576.38 FINDINGS: Brain: There is moderate diffuse cerebral atrophy. There is no significant mass effect or midline shift. There is no acute intracranial hemorrhage. Cerebral ventricles: There is mild ex vacuo dilation of the lateral ventricles. The basal cisterns are unremarkable. Bones/joints: The calvarium is intact. Paranasal sinuses: The paranasal sinuses are clear. Mastoid air cells: The mastoid air cells are clear. Soft tissues: The visible extracranial soft tissues are unremarkable. CT/CT head wo con* [id number] IMPRESSION: No acute findings. Radiation Dose CTDIVOL = (mGy): DLP = 1576.38 (mGy-cm) Dictated By: Mak Storey MD Signed By: Mak Storey MD Signed Date/Time: 06/13/20154 DD/ 3 CT Abd/Pel: Attestation: I personally reviewed and interpreted this imaging study as follows: Radiologist's impression: [address] [address] [address] Scan Report Signed Patient: Tulio Arndt Unit #: [id number] : 1940 Age/Sex: 80 / M ADM Date: 06/12/20 Loc: ER Room/Bed: Attending Dr: Ordering Provider/Ordering MD: Shemar Titus Date of Service: 06/13/20 Procedure(s): CT abdomen pelvis w con* [id number] Accession Number(s): [id number] Report Number: [id number] PROCEDURE INFORMATION: Exam: CT Abdomen And Pelvis With Contrast Exam date and time: 06/13/2020 12:46 AM Age: 80 years old Clinical indication: Abdominal pain; Prior surgery; Surgery type: Pacer; Patient HX: Epigastric pain. History of gerd. ; Additional info: Abdominal tenderness, poor appetitie TECHNIQUE: Imaging protocol: Computed tomography of the abdomen and pelvis with intravenous contrast. Radiation optimization: All CT scans at this facility use at least one of these dose optimization techniques: automated exposure control; mA and/or kV adjustment per patient size (includes targeted exams where dose is matched to clinical indication); or iterative reconstruction. Contrast material: VISI 320; Contrast volume: 95 ml; Contrast route: INTRAVENOUS (IV); COMPARISON: CT abdomen pelvis w con* [id number] 03/05/2020 3:16 PM RADIATION DOSE METRICS: Total DLP (mGy-cm): 1201.39 FINDINGS: Lungs: There is subsegmental atelectasis in the lung bases. Mediastinal space: There is a small sliding-type hiatal hernia. Liver: The liver is normal. Gallbladder and bile ducts: Small calcified stones in the gallbladder neck. No gallbladder distention or wall thickening. No biliary dilation. Pancreas: There is marked atrophy of the pancreas. Spleen: The spleen is unremarkable. Adrenal glands: The adrenal glands are unremarkable. Kidneys and ureters: The kidneys are unremarkable. No hydronephrosis or stones. No ureteral dilation. Stomach and bowel: The stomach is unremarkable. The small bowel is nondilated. The colon is unremarkable. Appendix: The appendix is normal. Intraperitoneal space: There is no free air or significant intraperitoneal free fluid. Vasculature: There is severe aortic atherosclerotic disease. The portal, splenic and superior mesenteric veins are patent. Lymph nodes: There is no lymphadenopathy in the retroperitoneum, mesentery, pelvis or inguinal regions. Urinary bladder: Unremarkable as visualized. Reproductive: Unremarkable as visualized. Bones/joints: There are chronic bilateral L5 pars defects with grade 1 anterolisthesis of L5 on S1. There is mild degenerative disease in the lumbar spine. The pelvis and hips are intact. Soft tissues: The abdominal wall is intact. CT/CT abdomen pelvis w con* [id number] IMPRESSION: 1. No acute findings. 2. Incidental findings above. Radiation Dose CTDIVOL = (mGy): DLP = 1201.39 (mGy-cm) Dictated By: Mak Storey MD Signed By: Mak Storey MD Signed Date/Time: 06/13/20200 DD/ 9 EKG Data ^: EKG 1: Attestation: I personally reviewed and interpreted this EKG as follows: EKG interpretation date: 06/13/20 Interpretation: Sinus rhythm with first-degree AV block. 92 bpm. compared to previous EKG done on March 05, 2020. Patient is new Q wave in V1 and V2 leads. 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1940 Requested By: Shemar Titus Order Number: [id number] Reading MD: TIO PALAFOX Measurements Intervals [place] Rate: 92 P: 3 AK: 214 QRS: -3 QRSD: 77 T: 34 QT: 313 QTc: 387 Interpretive Statements SINUS RHYTHM WITH FIRST DEGREE AV BLOCK WITH OCCASIONAL VENTRICULAR PREMATURE COMPLEXES LOW QRS VOLTAGE IN PRECORDIAL LEADS [QRS DEFLECTION < 1.0 mV IN CHEST LEADS] POSSIBLE INFERIOR MYOCARDIAL INFARCTION , OF INDETERMINATE AGE [30 ms Q WAVE IN II/aVF] ANTEROSEPTAL MYOCARDIAL INFARCTION , OF INDETERMINATE AGE [40+ ms Q WAVE IN V1-V4] Compared to ECG 03/05/2020 20:01:18 Myocardial infarct finding now present T-wave abnormality no longer present Electronically Signed On 06-13-2020 17:27:27 SLATE ROOFER HELPER by TIO PALAFOX [email or web address] Dictated By:Tio Palafox MD Signed By:Tio Palafox MDSigned Date/Time:06/13/201727 DD/ 0000 EKG 2: Attestation: I personally reviewed and interpreted this EKG as follows: Interpretation: [facility] [address] [place] [place] [address] Electrocardiograph Report Signed Patient: Tulio Arndt #: [id number] : 1940cct#:[id number] Age/Sex: 80 / MADM Date: 06/12/20 Loc: ERRoom/Bed: Attending Dr: Ordering Provider/Ordering MD: Shemar Titus Date of Service: 06/13/20 Procedure(s): ECG 12 lead EKG Accession Number(s): [id number] Report Number: [id number] [facility] Test Date: 2020-06-13 Pat Name: Tulio Arndt Department: Room: Gender: Male Music Minister: : 1940 Requested By: Shemar Titus Order Number: [id number] Reading MD: TIO PALAFOX Measurements Intervals [place] Rate: 81 P: 20 AK: 204 QRS: 6 QRSD: 94 T: 25 QT: 360 QTc: 419 Interpretive Statements SINUS RHYTHM LOW QRS VOLTAGE IN PRECORDIAL LEADS [QRS DEFLECTION < 1.0 mV IN CHEST LEADS] Compared to ECG 06/13/2020 00:00:55 First degree AV block no longer present Myocardial infarct finding no longer present Electronically Signed On 06-13-2020 17:28:13 SLATE ROOFER HELPER by TIO PALAFOX [id number] Dictated By:Tio Palafox MD Signed By:Tio Palafox MDSigned Date/Time:06/13/201728 DD/ 0158 Discharge Plan Discharge Patient Disposition: Home Clinical Impression: Closed rib fracture Qualifiers: Encounter type: initial encounter Rib fracture type: single rib Laterality: left Qualified Code(s): S22.32XA - Fracture of one rib, left side, initial encounter for closed fracture Fall as cause of accidental injury at home as place of occurrence Qualifiers: Encounter type: initial encounter Qualified Code(s): W19.XXXA - Unspecified fall, initial encounter Abdominal tenderness Qualifiers: Abdominal location: periumbilical Presence of rebound: absent Qualified Code(s): R10.815 - Periumbilic abdominal tenderness Condition: Stable Prescriptions: No Action pantoprazole 40 mg tablet,delayed release (DR/EC) 40 mg PO BID Qty: 180 RF: 3 pioglitazone 15 mg Tablet 15 mg PO DAILY RF: 0 metoprolol tartrate 100 mg Tablet 100 mg PO DAILY RF: 0 glipizide 10 mg Tablet 10 mg PO BID RF: 0 metformin 850 mg Tablet 850 mg PO TID RF: 0 allopurinol 100 mg Tablet 100 mg PO DAILY RF: 0 methotrexate sodium 25 mg/mL Solution 25 mg IM Q7D RF: 0 Aspirin Low Dose 81 mg Tablet,Delayed Release (Dr/Ec) 81 mg PO DAILY RF: 0 spironolactone 25 mg Tablet 12.5 mg PO DAILY RF: 0 isosorbide mononitrate 60 mg Tablet Extended Release 24 Hr 60 mg PO DAILY RF: 0 pravastatin 80 mg Tablet 80 mg PO DAILY RF: 0 tamsulosin 0.4 mg Capsule 0.4 mg PO DAILY RF: 0 nitroglycerin 0.4 mg Tablet, Sublingual 0.4 mg SUBLINGUAL Q5M PRN (Reason: CHEST PAINS) RF: 0 folic acid 1 mg Tablet 1 mg PO DAILY RF: 0 benazepril 40 mg Tablet 40 mg PO DAILY RF: 0 finasteride 5 mg Tablet 5 mg PO DAILY RF: 0 insulin aspart U-100 100 unit/mL (3 mL) Insulin Pen 5 unit SUBCUT TID RF: 0 cholecalciferol (vitamin D3) 25 mcg (1,000 unit) Tablet 25 mcg PO DAILY RF: 0 apixaban 5 mg Tablet 5 mg PO BID RF: 0 insulin glargine 70 units PO DAILY RF: 0 Discharge Orders: Discharge ED (Routine); Ordered 06/13/20 Ordered By: Shemar Titus Referrals: Sharon Gleason NP [Primary Care Provider] - Discharge Diet: Regular Discharge Activity: Limit activity as instructed Patient Instructions: Rib Fracture (ED) Activity Restrictions/Additional Instructions: Follow-up with medical provider as directed in 7 to 10 days for reevaluation. Take pain medications as prescribed. Apply cold pack on sore area ribs and limit activity and lifting to allow for healing. Return to the ER or your medical provider if condition worsens. Please read and understand discharge instructions. If any questions, please ask. Coding Level of Care Code ED Can Capper for Jack Fwd Exam Comprehensive
[2020-06-12 23:26] LABS: Basophils # 0.1 10^3/uL (0.0-0.1); Eosinophils # 0.2 10^3/uL (0.0-0.8); Eosinophils % 2.7 %; Hematocrit 38.3 % (42.0-52.0); Lymphocytes # 1.6 10^3/uL (0.8-4.8); Lymphocytes % 22.1 %; Mean Corpuscular HGB Conc 33.9 g/dL (30.0-36.0); Mean Corpuscular Hemoglobin 30.8 pg (28.0-34.0); Mean Corpuscular Volume 90.8 fL (80-94); Mean Platelet Volume 10.4 fL (7.4-10.4); Monocytes # 0.7 10^3/uL (0.2-0.9); Monocytes % 10.4 %; Neutrophils # 4.53 10^3/uL (1.8-7.7); Neutrophils % 63.4 %; Nucleated Red Blood Cells % 0 %; Platelet Count 213 10^3/cmm (130-400); Red Blood Count 4.22 10^6/uL (4.1-5.3); Red Cell Distribution Width 12.7 % (12.1-15.1); White Blood Count 7.1 10^3/uL (4.0-10.0)
[2020-06-12 23:43] LABS: Alanine Aminotransferase 12 U/L (0-41); Albumin Level 4.1 g/dL (3.5-5.2); Alkaline Phosphatase 116 IU/L (40-130); Anion Gap 19.6 (5-19); Aspartate Amino Transferase 13 U/L (0-40); Blood Urea Nitrogen 57 mg/dL (8-23); Calcium 10.3 mg/dL (8.5-10.5); Carbon Dioxide 18 mmol/L (22-29); Chloride 95 mmol/L (98-107); Globulin 2.9 g/dL (1.3-4.6); Glucose 353 mg/dL (65-115); Lipase 11 U/L (13-60); Osmolality Calculated 294 mOsm/kg (285-295); Potassium 5.6 mmol/L (3.5-5.1); Sodium 127 mmol/L (136-145); Total Bilirubin 0.3 mg/dL (0.15-1.2)
--- NOTE | 2020-06-12 23:50 | ECG_ITS ---
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: : 1940 Requested By: Shemar Titus Order Number: [id number] Abby MD: TIO BAKER Measurements Intervals [place] Rate: 92 P: 3 TX: 214 QRS: -3 QRSD: 77 T: 34 QT: 313 QTc: 387 Interpretive Statements SINUS RHYTHM WITH FIRST DEGREE AV BLOCK WITH OCCASIONAL VENTRICULAR PREMATURE COMPLEXES LOW QRS VOLTAGE IN PRECORDIAL LEADS [QRS DEFLECTION < 1.0 mV IN CHEST LEADS] POSSIBLE INFERIOR MYOCARDIAL INFARCTION , OF INDETERMINATE AGE [30 ms Q WAVE IN II/aVF] ANTEROSEPTAL MYOCARDIAL INFARCTION , OF INDETERMINATE AGE [40+ ms Q WAVE IN V1-V4] Compared to ECG 03/05/2020 20:01:18 Myocardial infarct finding now present T-wave abnormality no longer present Electronically Signed On 06-13-2020 17:27:27 FOUNDATION RELATIONS DIRECTOR by TIO BAKER [id number]
--- NOTE | 2020-06-12 23:50 | XRR_ITS ---
PROCEDURE INFORMATION: Exam: XR Left Ribs with PA Chest, 3 Views Exam date and time: 06/12/2020 11:59 PM Age: 80 years old Clinical indication: Chest wall pain; Prior surgery; Surgery type: Pacer; Patient HX: Left rib pain with severe SOB. Patient had difficulty following breathing instructions and positioning. ; Additional info: Cp/left rib pain TECHNIQUE: Imaging protocol: XR Left ribs 3 views with PA chest. COMPARISON: CR XR chest 1V portable [id number] 03/05/2020 2:51 PM FINDINGS: Tubes, catheters and devices: Left-sided permanent pacemaker noted, unchanged. Lungs: Unremarkable. No consolidation. Pleural space: Unremarkable. No pleural effusion. No pneumothorax. Heart/Mediastinum: Unremarkable. No cardiomegaly. Vasculature: The thoracic aorta is mildly atherosclerotic. Bones/joints: Nondisplaced fracture of the lateral left 7th rib near the costochondral junction. No additional fractures are identified. XR/XR ribs LT mn 3V w CXR1V [id number] IMPRESSION: 1. Nondisplaced fracture of the lateral left 7th rib near the costochondral junction. No associated pneumothorax. 2. No additional fractures are identified.
--- NOTE | 2020-06-13 00:01 | CTR_ITS ---
PROCEDURE INFORMATION: Exam: CT Abdomen And Pelvis With Contrast Exam date and time: 06/13/2020 12:46 AM Age: 80 years old Clinical indication: Abdominal pain; Prior surgery; Surgery type: Pacer; Patient HX: Epigastric pain. History of gerd. ; Additional info: Abdominal tenderness, poor appetitie TECHNIQUE: Imaging protocol: Computed tomography of the abdomen and pelvis with intravenous contrast. Radiation optimization: All CT scans at this facility use at least one of these dose optimization techniques: automated exposure control; mA and/or kV adjustment per patient size (includes targeted exams where dose is matched to clinical indication); or iterative reconstruction. Contrast material: VISI 320; Contrast volume: 95 ml; Contrast route: INTRAVENOUS (IV); COMPARISON: CT abdomen pelvis w con* [id number] 03/05/2020 3:16 PM RADIATION DOSE METRICS: Total DLP (mGy-cm): 1201.39 FINDINGS: Lungs: There is subsegmental atelectasis in the lung bases. Mediastinal space: There is a small sliding-type hiatal hernia. Liver: The liver is normal. Gallbladder and bile ducts: Small calcified stones in the gallbladder neck. No gallbladder distention or wall thickening. No biliary dilation. Pancreas: There is marked atrophy of the pancreas. Spleen: The spleen is unremarkable. Adrenal glands: The adrenal glands are unremarkable. Kidneys and ureters: The kidneys are unremarkable. No hydronephrosis or stones. No ureteral dilation. Stomach and bowel: The stomach is unremarkable. The small bowel is nondilated. The colon is unremarkable. Appendix: The appendix is normal. Intraperitoneal space: There is no free air or significant intraperitoneal free fluid. Vasculature: There is severe aortic atherosclerotic disease. The portal, splenic and superior mesenteric veins are patent. Lymph nodes: There is no lymphadenopathy in the retroperitoneum, mesentery, pelvis or inguinal regions. Urinary bladder: Unremarkable as visualized. Reproductive: Unremarkable as visualized. Bones/joints: There are chronic bilateral L5 pars defects with grade 1 anterolisthesis of L5 on S1. There is mild degenerative disease in the lumbar spine. The pelvis and hips are intact. Soft tissues: The abdominal wall is intact. CT/CT abdomen pelvis w con* [id number] IMPRESSION: 1. No acute findings. 2. Incidental findings above. Radiation Dose CTDIVOL = (mGy): DLP = 1201.39 (mGy-cm)
[2020-06-13 00:05] LABS: Bilirubin Urine Neg (Negative); Blood Urine Neg (Negative); Glucose Urine UA 4+ (Normal); Ketones Urine Negative (Negative); Leukocyte Esterase Urine Negative (Negative); Nitrate Urine Negative (Negative); Protein Urine Neg (Negative); Specific Gravity, Urine 1.015 (1.005-1.030); Urine Appearance Clear (CLEAR); Urine Color Straw (Yellow); Urobilinogen Urine Norm (Negative); pH Urine 5 (5-7)
--- NOTE | 2020-06-13 00:07 | CTR_ITS ---
PROCEDURE INFORMATION: Exam: CT Head Without Contrast Exam date and time: 06/13/2020 12:46 AM Age: 80 years old Clinical indication: Injury or trauma; Blunt trauma (contusions or hematomas); Patient HX: Fall today TECHNIQUE: Imaging protocol: Computed tomography of the head without contrast. Radiation optimization: All CT scans at this facility use at least one of these dose optimization techniques: automated exposure control; mA and/or kV adjustment per patient size (includes targeted exams where dose is matched to clinical indication); or iterative reconstruction. COMPARISON: CT head wo con* [id number] 03/05/2020 3:08 PM RADIATION DOSE METRICS: Total DLP (mGy-cm): 1576.38 FINDINGS: Brain: There is moderate diffuse cerebral atrophy. There is no significant mass effect or midline shift. There is no acute intracranial hemorrhage. Cerebral ventricles: There is mild ex vacuo dilation of the lateral ventricles. The basal cisterns are unremarkable. Bones/joints: The calvarium is intact. Paranasal sinuses: The paranasal sinuses are clear. Mastoid air cells: The mastoid air cells are clear. Soft tissues: The visible extracranial soft tissues are unremarkable. CT/CT head wo con* [id number] IMPRESSION: No acute findings. Radiation Dose CTDIVOL = (mGy): DLP = 1576.38 (mGy-cm)
[2020-06-13 00:15] LABS: Add Urine Culture? No; Bacteria Urine TRACE /hpf; Hyaline Casts Urine 0-4 /lpf; Squamous Epithelial Cell Urine 0-4 /hpf (0-5)
[2020-06-13] MEDS: sodium chloride 0.9% 500 ML 999 ML IV (00:27)
[2020-06-13 00:40] LABS: Troponin(5th) Baseline 32 ng/L (0-15)
[2020-06-13 00:47] LABS: NT Pro B Type Natriuretic Pept 385 pg/mL (0-450)
[2020-06-13 01:03] VITALS: BP 105/68; PULSE 84; RESP 16; O2SAT 94
[2020-06-13] MEDS: iodixanol 320 mg/mL 100mL Btl IV (01:12)
[2020-06-13 01:40] VITALS: RESP 20; O2SAT 99
[2020-06-13] MEDS: morphine 4 mg/mL SDV 1 mL 2 MG IVP (01:40)
[2020-06-13] MEDS: ondansetron 2 mg/ML SDV 2 mL 4 MG IVP (01:41)
[2020-06-13 01:42] VITALS: BP 134/73; PULSE 89; RESP 20; O2SAT 99
[2020-06-13 02:11] VITALS: BP 125/84; PULSE 97; RESP 18; O2SAT 97
[2020-06-13 02:30] VITALS: BP 108/63; PULSE 85; RESP 15; O2SAT 99
--- NOTE | 2020-06-13 05:50 | ECG_ITS ---
[facility] Test Date: 2020-06-13 Pat Name: Tulio Arndt Department: Room: Gender: Male Photo Cartographer: : 1940 Requested By: Shemar Titus Order Number: [id number] Abby MD: TIO BAKER Measurements Intervals [place] Rate: 81 P: 20 HI: 204 QRS: 6 QRSD: 94 T: 25 QT: 360 QTc: 419 Interpretive Statements SINUS RHYTHM LOW QRS VOLTAGE IN PRECORDIAL LEADS [QRS DEFLECTION < 1.0 mV IN CHEST LEADS] Compared to ECG 06/13/2020 00:00:55 First degree AV block no longer present Myocardial infarct finding no longer present Electronically Signed On 06-13-2020 17:28:13 CELERY PACKER by TIO BAKER [id number]
== END 2020-06-13 02:33 | disposition home or self-care (01) ==
PROVIDERS: Emergency Provider Physician Assistant; PCP Nurse Practitioner Family
DX: S22.32XA Fracture of one rib, left side, initial encounter for closed fracture (principal); R10.815 Periumbilic abdominal tenderness; Z79.82 Long term (current) use of aspirin; Z79.4 Long term (current) use of insulin; E78.5 Hyperlipidemia, unspecified; Z95.0 Presence of cardiac pacemaker; W19.XXXA Unspecified fall, initial encounter
CPT/HCPCS: 12345; 70450; 71101; 74177; 80053; 81001; 83690; 83880; 84484; 85025; 87040; 93005; 96374; 96375; 99283; 99284; J2270; J2405; J7040; Q9967

== ENCOUNTER 2021-01-28 20:49 | Emergency (ER) | payer OTHER, MEDICARE, SELFPAY ==
--- NOTE | 2021-01-28 21:27 | XRR_ITS ---
PROCEDURE INFORMATION: Exam: XR Left Ribs with PA Chest Exam date and time: 01/28/2021 9:27 PM Age: 80 years old Clinical indication: Other: Lt. Mid rib pain; Prior surgery; Surgery date: 6+ months; Surgery type: Pacemaker; Additional info: Fall, include cxr TECHNIQUE: Imaging protocol: XR Left ribs with PA chest. Views: 3 views COMPARISON: CR XR ribs LT mn 3V w CXR1V [id number] 06/13/2020 12:09 AM FINDINGS: Tubes, catheters and devices: There is left-sided pacemaker with intact leads overlying the right atrium and right ventricle. Lungs: Stable scarring in the right lung. Pleural spaces: Unremarkable. No pleural effusion. No pneumothorax. Heart/Mediastinum: Unremarkable. No cardiomegaly. Bones/joints: Questionable fracture of the anterolateral left 6th rib. There is an anterolateral left 7th rib fracture. XR/XR ribs LT mn 3V w CXR1V [id number] IMPRESSION: 1. Questionable fracture of the anterolateral left 6th rib. 2. There is an anterolateral left 7th rib fracture.
[2021-01-28 21:31] VITALS: BP 141/69; PULSE 101; RESP 18; TEMP 36.3; O2SAT 97; BMI 29.8
--- NOTE | 2021-01-28 23:22 | ED_ITS ---
HPI - Trauma General: Chief Complaint: Trauma Stated Complaint: Fell on 01/26 Pain Intense Left Ribs Time Seen by Provider: 01/28/21 23:22 History of Present Illness: HPI narrative: 80-year-old male patient fell 2 days ago striking his left mid ribs. Patient reports pain to the anterior left chest wall. Patient appears chronically ill but not toxic. Patient has multiple comorbidities. Patient came in tonight due to uncontrolled pain. Patient took some ibuprofen yesterday and did well but tonight he reported that he had minimal pain relief. Review of Systems General: Reports: 10 or more systems reviewed and unremarkable except in HPI and below Card: Reports: other (Left anterior chest wall pain) [facility] ED PFS: Medical History (Updated 01/28/21 @ 23:38 by MICHAEL Asencio) BPH (benign prostatic hyperplasia) Dyslipidemia Esophageal stricture Psoriasis Sick sinus syndrome Surgical History History of permanent cardiac pacemaker placement Family History Daughter Pancreatic cancer Social History Smoking and tobacco status: never smoked Alcohol intake: current Alcohol intake frequency: holidays/special occasions only History of recent travel: No Physical Exam Const: COMMON NORMALS: no acute distress and patient oriented x3 GENERAL APPEARANCE: cooperative HENMT: COMMON NORMALS: normocephalic and Normal external nose present HEAD & SCALP: normal to inspection and normocephalic NOSE: Normal external nose present MOUTH: Normal oral and palatal mucosa present Eye: GENERAL EYE: appearance normal, both eyes and all related structures Neck/C-Spine: COMMON NORMALS: full ROM Chest: OTHER: Left anterior chest wall pain. Resp: COMMON NORMALS: normal respiratory effort and clear to auscultation bilaterally EFFORT & INSPECTION: Yes able to speak in complete sentences AUSCULTATION: clear to auscultation bilaterally Cardio: COMMON NORMALS: regular rate and regular rhythm RATE: regular rate RHYTHM: regular rhythm GI: COMMON NORMALS: non-tender Extremity: COMMON NORMALS: normal to inspection Neuro: COMMON NORMALS: patient oriented x3 and moves all extremities Psych: COMMON NORMALS: mental status grossly normal and cooperative Skin: COMMON NORMALS: no rashes or lesions noted GENERAL SKIN EXAM: no rashes or lesions noted Course Vital Signs: Vital signs: Vital Signs Temperature 97.3 F L 01/28/21 21:31 Pulse Rate 101 H 01/28/21 21:31 Respiratory Rate 18 01/28/21 21:31 Blood Pressure 141/69 01/28/21 21:31 Pulse Oximetry 97 01/28/21 21:31 MDM - Trauma MDM Narrative: Medical decision making narrative: Patient comes in with left anterior chest wall pain after a fall 2 days ago. Patient appears chronically ill but stable. Lungs are clear to auscultation. Chest wall is tender to left anterior. Vital signs are normal. Differential diagnosis includes contusion, pneumonia, fracture. Patient has 2 rib fractures on 7 and 6 7 not displaced. Lung lee are clear. Patient will be managed with hydrocodone for pain. Recommended follow-up with primary care for further instruction. Patient reported understanding agreed to plan. Discharge Plan Discharge Patient Disposition: Home Clinical Impression: Left rib fracture Qualifiers: Encounter type: initial encounter Rib fracture type: multiple ribs Fracture type: closed Qualified Code(s): S22.42XA - Multiple fractures of ribs, left side, initial encounter for closed fracture Condition: Stable Prescriptions: New hydrocodone-acetaminophen 5-325 mg tablet 1 tab PO Q6H PRN (Reason: pain (scale score 7-10)) Qty: 10 RF: 0 No Action pantoprazole 40 mg tablet,delayed release (DR/EC) 40 mg PO BID Qty: 180 RF: 3 insulin aspart U-100 [Novolog Flexpen U-100 Insulin] 100 unit/mL (3 mL) insulin pen 3 unit SUBCUT BID RF: 0 mirtazapine 15 mg tablet 15 mg PO .QHS Qty: 90 RF: 3 pioglitazone 15 mg Tablet 15 mg PO DAILY RF: 0 metoprolol tartrate 100 mg Tablet 100 mg PO DAILY RF: 0 glipizide 10 mg Tablet 10 mg PO BID RF: 0 metformin 850 mg Tablet 850 mg PO TID RF: 0 allopurinol 100 mg Tablet 100 mg PO DAILY RF: 0 methotrexate sodium 25 mg/mL Solution 25 mg IM Q7D RF: 0 Aspirin Low Dose 81 mg Tablet,Delayed Release (Dr/Ec) 81 mg PO DAILY RF: 0 spironolactone 25 mg Tablet 12.5 mg PO DAILY RF: 0 isosorbide mononitrate 60 mg Tablet Extended Release 24 Hr 60 mg PO DAILY RF: 0 pravastatin 80 mg Tablet 80 mg PO DAILY RF: 0 tamsulosin 0.4 mg Capsule 0.4 mg PO DAILY RF: 0 nitroglycerin 0.4 mg Tablet, Sublingual 0.4 mg SUBLINGUAL Q5M PRN (Reason: CHEST PAINS) RF: 0 folic acid 1 mg Tablet 1 mg PO DAILY RF: 0 benazepril 40 mg Tablet 40 mg PO DAILY RF: 0 finasteride 5 mg Tablet 5 mg PO DAILY RF: 0 insulin aspart U-100 100 unit/mL (3 mL) Insulin Pen 5 unit SUBCUT TID RF: 0 cholecalciferol (vitamin D3) 25 mcg (1,000 unit) Tablet 25 mcg PO DAILY RF: 0 apixaban 5 mg Tablet 5 mg PO BID RF: 0 insulin glargine 70 units PO DAILY RF: 0 Discharge Orders: Discharge ED (Routine); Ordered 01/28/21 Ordered By: Mukul Rodriguez Referrals: Sharon Gleason NP [Primary Care Provider] - Discharge Diet: Usual diet Discharge Activity: Increase activity as tolerated Patient Instructions: Rib Fracture (ED), Opioid Safety Activity Restrictions/Additional Instructions: Home and rest. Activity as tolerated. Take deep breaths and cough every 2-3 h ours. Try to stay as active as you can. Splint the ribs with a pillow when taking deep breath and coughing. Follow-up with primary care as needed. Return to the emergency department for high fever or worsening shortness of breath. Coding Level of Care Code ED Chemical Process Equipment Operator for Jack Layton
[2021-01-28 23:47] VITALS: BP 168/108; PULSE 83; RESP 18; O2SAT 96
== END 2021-01-28 23:49 | disposition home or self-care (01) ==
PROVIDERS: Emergency Provider Nurse Practitioner Family; PCP Nurse Practitioner Family
DX: S22.42XA Multiple fractures of ribs, left side, initial encounter for closed fracture (principal); E78.5 Hyperlipidemia, unspecified; W19.XXXA Unspecified fall, initial encounter
CPT/HCPCS: 71101; 99282

== ENCOUNTER 2021-03-11 07:35 | Outpatient (CLI) | payer OTHER, MEDICARE, SELFPAY ==
--- NOTE | 2021-03-11 07:42 | XR_ITS ---
WS: [id number] KUB, AP view, 03/11/2021 Clinical Data: microhematuria Comparison: KUB, 08/20/2013. Findings: No abnormal intraabdominal masses or calcifications are seen. There is no dilatated small bowel or ev idence of obstruction. There is a moderate amount of fecal material throughout the colon. 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 XR/XR KUB [id number] Impression: Negative KUB.
== END 2021-03-11 07:36 | disposition home or self-care (01) ==
PROVIDERS: PCP Nurse Practitioner Family; Visit Provider Urology
DX: R31.29 Other microscopic hematuria (principal)
CPT/HCPCS: 74018

== ENCOUNTER → 2021-03-30 13:24 | Outpatient (BNVA) | payer OTHER, SELFPAY | PROVIDERS: PCP Nurse Practitioner Family; Visit Provider Specialist | DX: G31.83 Neurocognitive disorder with Lewy bodies (principal); F02.80 Dementia in other diseases classified elsewhere, unspecified severity, without behavioral disturbance, psychotic disturbance, mood disturbance, and anxiety | CPT/HCPCS: 96116; 99205 ==

== ENCOUNTER → 2021-09-30 15:04 | Outpatient (BNVA) | payer OTHER, SELFPAY | PROVIDERS: PCP Nurse Practitioner Family; Visit Provider Urology | DX: N40.1 Benign prostatic hyperplasia with lower urinary tract symptoms (principal); N39.41 Urge incontinence | CPT/HCPCS: 81003; 87077; 87086; 87184 ==

== ENCOUNTER 2021-10-16 15:49 | Emergency (ER) | payer OTHER, MEDICARE, SELFPAY ==
[2021-10-16 16:00] VITALS: BP 140/88; PULSE 97; RESP 18; TEMP 36.3; O2SAT 97; BMI 25.8
--- NOTE | 2021-10-16 16:06 | ED_ITS ---
HPI - Extremity Problem General: Chief complaint: Extremity Injury, Upper Stated complaint: numbness in right hand Time Seen by Provider: 10/16/21 16:05 Source: patient and family Mode of arrival: ambulatory Limitations: altered mental status History of Present Illness: 81-year-old male presents with his complaining of right hand difficulty. This morning after he woke up they noted some difficulty with his right hand he is complaining some discomfort he cannot extend at the wrist or extend his fingers. There is no trauma or injury. states he sleeps in awkward positions at times will hook his right arm behind the back of the chair as he sits upright and it and leans back. He demonstrated this spontaneously while in the exam room. He has no other injuries. states his dementia actually seems to be doing pretty good today she is not noticed any perceived difficulty with speech swallowing or gait. There is no chest pain no headache. MD Complaint: other (Weakness of extension at the wrist and fingers) Onset (ago): hour(s) Pain Consistency: constant Location: right and upper extremity Relieving factors: nothing Exacerbating factors: nothing Associated symptoms: Deny arthralgias, chest pain, fever(s), myalgias, rash or short of breath Review of Systems Const: Denies: fever(s) Card: Denies: chest pain Resp: Denies: dyspnea, productive cough or non-productive cough GI: Denies: abdominal pain, nausea, vomiting or constipation : Denies: dysuria, urinary frequency or urinary urgency Skin/Breast: Denies: rash PFSH ED PFSH: Medical History Dyslipidemia Esophageal stricture Psoriasis Sick sinus syndrome Surgical History History of permanent cardiac pacemaker placement Family History Daughter Pancreatic cancer Social History Smoking and tobacco status: never smoked Alcohol intake: never Marital status: Current occupational status: retired History of recent travel: No Physical Exam Const: COMMON NORMALS: no acute distress GENERAL APPEARANCE: cooperative and comfortable ORIENTATION/CONSCIOUSNESS: Yes awake, Yes oriented to person, Yes oriented to place and Yes oriented to time HENMT: COMMON NORMALS: normocephalic and atraumatic HEAD & SCALP: normocephalic and atraumatic Neck/C-Spine: COMMON NORMALS: no JVD Resp: COMMON NORMALS: normal respiratory effort, No retractions, No use of accessory muscles and clear to auscultation bilaterally AUSCULTATION: clear to auscultation bilaterally Cardio: COMMON NORMALS: no JVD, regular rate, regular rhythm and No murmurs present (Cardio) RATE: regular rate RHYTHM: regular rhythm Extremity: COMMON NORMALS: normal to inspection, capillary refill normal, no clubbing, cyanosis or edema, no calf tenderness and no pedal edema Neuro: SENSORIUM/ORIENTATION: Yes oriented to person, Yes oriented to place and Yes oriented to time OTHER: Sensation to sharp touch is preserved in the distribution of the median and ulnar nerves for the most part patient is unable however to extend at the wrist and the right hand or extend the fingers he does have some early childhood education coordinator strength left but he states it is uncomfortable. He is able to flex at the right elbow and hold in full extension at the right elbow he is full strength at the shoulder girdle on the right arm. Skin: COMMON NORMALS: no rashes or lesions noted GENERAL SKIN EXAM: no rashes or lesions noted Course Vital Signs: Vital signs: Vital Signs Temperature 97.3 F L 10/16/21 16:00 Pulse Rate 97 10/16/21 16:00 Respiratory Rate 18 10/16/21 16:00 Blood Pressure 140/88 10/16/21 16:00 Pulse Oximetry 97 10/16/21 16:00 MDM - Extremity (Nontraumatic) Medical Decision Making Acute radial nerve palsy no evidence of any other injury. Seems more peripheral he certainly does not have any central there is nothing suggestive of stroke he is a stroke score otherwise of 0. He can hold his arms out without any forearm drift he does cannot extend at the wrist when he attempts to do so. Talk about the possibility of using steroids to help relieve inflammation of the nerve however with his dementia I am concerned it actually cause more problems and would help. We will put him in a volar forearm splint with slight extension for now. He may take it off a few hours out of the day. He should sleep with on it. Can use anti-inflammatories. Should follow-up towards the end of the week with his primary care doctor if it is persisting may need referral for EMG or referral to neurology. Medical Records I reviewed the patient's medical records. Discharge Plan Discharge Patient Disposition: Home Clinical Impression: Acute radial nerve palsy Condition: Stable Prescriptions: No Action cholecalciferol (vitamin D3) 25 mcg (1,000 unit) capsule 25 mcg PO DAILY 0RF aspirin 81 mg tablet,delayed release (DR/EC) 81 mg PO DAILY 0RF citalopram 20 mg tablet 20 mg PO DAILY Qty: 30 3RF galantamine 12 mg tablet 12 mg PO BID Qty: 60 2RF Rx Instructions: administer with AM and PM meals pantoprazole 40 mg tablet,delayed release (DR/EC) 40 mg PO BID Qty: 180 3RF insulin aspart U-100 [Novolog Flexpen U-100 Insulin] 100 unit/mL (3 mL) insulin pen 3 unit SUBCUT BID 0RF mirtazapine 15 mg tablet 15 mg PO .QHS Qty: 90 3RF doxycycline hyclate 100 mg capsule 100 mg PO BID Qty: 20 0RF pioglitazone 15 mg Tablet 15 mg PO DAILY 0RF metoprolol tartrate 100 mg Tablet 100 mg PO DAILY 0RF Rx Instructions: DIRECTIONS FROM [place] STATE 50 MG BID, BUT PT TAKES 100 ONCE PER DAY. glipizide 10 mg Tablet 10 mg PO BID 0RF metformin 850 mg Tablet 850 mg PO TID 0RF Rx Instructions: TAKE BEFORE MEALS pravastatin 80 mg Tablet 80 mg PO DAILY 0RF tamsulosin 0.4 mg Capsule 0.4 mg PO DAILY 0RF Rx Instructions: TAKE ONE CAP PO EVERY EVENING APPROXIMATELY 30 MINUTES AFTER THE SAME MEAL EACH DAY. nitroglycerin 0.4 mg Tablet, Sublingual 0.4 mg SUBLINGUAL Q5M PRN (Reason: CHEST PAINS) 0RF folic acid 1 mg Tablet 1 mg PO DAILY 0RF benazepril 40 mg Tablet 40 mg PO DAILY 0RF finasteride 5 mg Tablet 5 mg PO DAILY 0RF insulin aspart U-100 100 unit/mL (3 mL) insulin pen 50 unit SUBCUT BID 0RF Rx Instructions: PT'S UNSURE HOW MANY UNITS HE TOOK, HIS LAST TIME TO USE IT WAS 03/03/2020 ADMINISTER 10 MINUTES BEFORE FOOD DIRECTED. Discharge Orders: Discharge ED (Routine); Ordered 10/16/21 Ordered By: Jono Lua Referrals: Sharon Gleason NP [Primary Care Provider] - Discharge Diet: Usual diet Discharge Activity: Increase activity as tolerated Patient Instructions: Radial Nerve Palsy (ED), Opioid Safety Activity Restrictions/Additional Instructions: Wear the splint during the day and at night you may take it off for a few hours at a time during the daytime. If not improving over the next 5 to 7 days follow-up with your primary care doctor for possible referral to neurology. Coding Level of Care Code ED Electrical Prospecting Observer for Jack Layton NIH stroke score NIHSS Level Of Consciousness - 1a: 0 Level Of Consciousness Questions - 1b: Both Correct Level Of Consciousness Commands - 1c: Both Correct Best Gaze - 2: Normal Visual Sales - 3: No Visual Loss Facial Palsy - 4: Normal Motor Arm Right - 5: No Drift Motor Arm Left - 5: No Drift Motor Leg Right - 6: No Drift Motor Leg Left - 6: No Drift Limb Ataxia - 7: Absent Sensory - 8: Normal Best Language - 9: No Aphasia Dysarthia - 10: Normal Extinction And Inattention - 11: 0 Score Total Score: 0
[2021-10-16 16:41] VITALS: BP 136/94; PULSE 72; RESP 16; TEMP 36.5; O2SAT 94
== END 2021-10-16 16:42 | disposition home or self-care (01) ==
PROVIDERS: Emergency Provider Family Medicine; PCP Nurse Practitioner Family
DX: G56.31 Lesion of radial nerve, right upper limb (principal); F03.90 Unspecified dementia, unspecified severity, without behavioral disturbance, psychotic disturbance, mood disturbance, and anxiety
CPT/HCPCS: 29125; 99282